=== PATIENT | male | born 1950 | race Caucasian/White ===

== ENCOUNTER 2019-05-21 09:32 | Inpatient (IN) | payer MEDICARE, SELFPAY ==
[2019-05-21 09:59] LABS: #Eosinphils 0.1 thou/uL (0.0-0.7); #Lymphocytes 1.8 thou/uL (1.20-3.40); %Basophils 0.1 % (0.0-1.0); %Eosinophils 0.3 % (0.0-10.0); %Lymphocytes 8.9 % (21.0-51.0); %Monocytes 5.2 % (0.0-10.0); %Neutrophils 85.5 % (42.0-75.0); Hemoglobin 11.6 g/dL (14.0-18.0); Mean Corpuscular HGB CONC 33.4 g/dL (32.0-36.0); Mean Corpuscular Hemoglobin 28.6 pg (27.0-31.0); Mean Corpuscular Volume 85.7 fL (78.0-98.0); Mean Platelet Volume 6.2 fL (7.4-10.4); Platelet Count 623 thou/uL (130-400); Red Blood Cell (RBC) Count 4.06 mill/uL (4.70-6.10); White Blood Cell (WBC) Count 19.9 thou/uL (4.8-10.8)
[2019-05-21 10:22] LABS: ALT (SGPT) 11 U/L (8-55); AST (SGOT) 12 U/L (5-34); Albumin 3.8 g/dL (3.4-4.8); Alkaline Phosphatase 78 U/L (40-110); Anion Gap 17 mmol/L (10-20); BUN (Urea Nitrogen) 20 mg/dL (8.4-25.7); Bilirubin, Total 0.4 mg/dL (0.2-1.2); Calc. Creatinine Clearance 0 mL/min (70-130); Calcium 9.4 mg/dL (7.8-10.44); Carbon Dioxide 23 mmol/L (23-31); Chloride 97 mmol/L (98-107); Estimated GFR-MDRD 62; Globulin 4.4 g/dL (2.4-3.5); Glucose 168 mg/dL (80-115); Potassium 4.7 mmol/L (3.5-5.1); Protein, Total 8.2 g/dL (5.8-8.1); Sodium 132 mmol/L (136-145)
--- NOTE | 2019-05-21 10:24 | RAD ---
XR Foot Lt 3 View STANDARD: 05/21/2019 10:06 AM CLINICAL INDICATION: Pain COMPARISON: None. FINDINGS: Fracture:No fracture. Arthropathy:There is moderate scattered osteoarthritis. Pes planus. Incidental findings:Prominent soft tissues of the forefoot. IMPRESSION: 1. No acute osseous abnormality. 2. Prominent distal soft tissues of left foot. Correlate with physical exam.
[2019-05-21 11:31] LABS: Bacteria/HPF None Seen HPF (None Seen); Bilirubin Negative (Negative); Blood, Urine 1+ (Negative); Clarity Clear (Clear); Glucose, Urine (Dipstick) Normal (Negative); Leukocyte Negative Leu/uL (Negative); Nitrite Negative (Negative); Protein, Urine (Dipstick) 100 mg/dL (Neg-Trace); RBC/HPF 0-3 HPF (0-3); Squamous Epithelial None Seen HPF (0-3); Urobilinogen Normal mg/dL (Less than 2); WBC/HPF 0-3 HPF (0-3)
--- NOTE | 2019-05-21 11:48 | RAD ---
Frontal view chest COMPARISON: 12/07/2014 Clinical indication: Emergency exam FINDINGS: There is enlargement of cardiac silhouette and prominence of pulmonary vasculature. No cons olidation or significant effusion. Chest is otherwise similar. IMPRESSION: Findings indicate mild CHF. Correlate clinically.
[2019-05-21] MEDS ORDERED: Cefepime 2 GM VIAL ONE (12:44)
[2019-05-21] MEDS ORDERED: Ondansetron PF 4 MG/2 ML Vial IVP PRN (12:48)
[2019-05-21] MEDS ORDERED: HYDROcodone/Acetaminophen 5/325 mg Tablet PO PRN (12:48)
[2019-05-21] MEDS ORDERED: Dextrose 5% in Water 1,000 ML IV PRN (12:55)
[2019-05-21] MEDS ORDERED: Dextrose 50% Abboject 50 ML SYRINGE SLOW IVP PRN (12:55)
[2019-05-21 13:41] LABS: Lactic Acid 2.6 mmol/L (0.5-2.2)
[2019-05-21] MEDS: Sodium Chloride 0.9% 1,000 ML IV SCH (15:41)
[2019-05-21] MEDS: Acetaminophen 325 MG TAB PO PRN (15:44)
[2019-05-21] MEDS ORDERED: FLU VACC TS2019-20(65YR UP)/PF 180 MCG/0.5 ML SYRINGE IM ONE (16:30)
[2019-05-21] MEDS ORDERED: Prevnar 13-Val Conj/PF 0.5 ML SYRINGE IM ONE (16:30)
--- NOTE | 2019-05-21 16:40 | HP ---
PRESENTING COMPLAINT: Nausea, vomiting, diarrhea from 5 days and left foot swelling and pain from today. HISTORY OF PRESENT ILLNESS: The patient with a past medical history of hypertension; diabetes mellitus, on oral hypoglycemic agents; hyperlipidemia, paroxysmal atrial fibrillation, presented with nausea, vomiting, and diarrhea, ongoing from last 5 days. As per the patient, from last 5 days, he has been having nausea and also had episode of vomiting and diarrhea. Denies any bleeding per rectum. Denies any abdominal pain. As per the patient, he did not take shower from last 1 week, and today he removed his socks and I noticed painful swelling of his left foot, which he did not notice 5 days ago, when the foot was normal. The patient denies any trauma. Denies any fever production, chest pain, shortness of breath. Had complaints of mild dizziness. In the emergency room, the patient noted to have a 2nd, 3rd and 4th toes blue discoloration with mild left foot swelling and redness. The patient is being admitted for cellulitis, gangrenous left 3 toes, and also the patient found to be AFib with RVR. Heart rate 106 per minute. The patient says he has paroxysmal atrial fibrillation. He says that he takes aspirin off and on. Denies any oral anticoagulation. SYSTEMIC REVIEW: As mentioned above. PAST MEDICAL HISTORY: As mentioned above. PAST SURGICAL HISTORY: 1. History of right big toe and 1st toe amputation. 2. History of tonsillectomy. 3. History of hernia repair. SOCIAL HISTORY: The patient denies smoking, alcohol abuse, or drug abuse. FAMILY HISTORY: Reviewed and noncontributory. ALLERGIES: TETRACYCLINE. HOME MEDICATIONS: 1. Metformin. 2. Glyburide. 3. Aspirin, off and on. PHYSICAL EXAMINATION: VITAL SIGNS: Blood pressure 114/66, pulse 110, respirations 18, and oxygen saturation 95%. GENERAL: The patient lying in bed comfortably, not in any distress. HEENT: Conjunctivae are normal. Oral mucosa mildly dry. NECK: Supple. No JVD. No lymphadenopathy. CHEST: Normal vesicular breathing. No rhonchi. No wheezing. HEART: Sounds irregularly regular. ABDOMEN: Soft, benign, and nontender. No visceromegaly. EXTREMITIES: Redness and swelling noted in the left distal foot area with blue discoloration noted on the 2nd, 3rd, and 4th toe. Amputation noted at the right big toe and 1st toe. No obvious redness or swelling noted in the right big toe area. LABORATORY DATA: CBC unremarkable except for a white blood cell of 19.9, hemoglobin 11.6, and platelet 623. CMP unremarkable except blood glucose 168, creatinine 1.18, sodium 132, and lactic acid 2.4. UA negative. EKG, AFib with RVR, heart rate 106 per minute. IMPRESSION: 1. Cellulitis with gangrenous left 2nd, 3rd, and 4th toes. ED physician being consulting Dr. Andrews, who did the previous amputation of right big toe and 1st toe. We will continue broad-spectrum antibiotics. We will get blood culture. We will get arterial study to rule out any peripheral vascular tissue component. As per patient, he last examined his foot was 6 days ago and he was wearing socks during this time. 2. Paroxysmal atrial fibrillation with rapid ventricular response. As per the patient, he takes aspirin at home. He denies any oral anticoagulation. However , the patient with a history of diabetes mellitus, hypertension, and atrial fibrillation. will get Cardiology evaluation if the patient needs to be evaluated for oral anticoagulation. 3. Diabetes mellitus. The patient takes oral hypoglycemic agents at home, and as per the patient, last blood glucose check was 2 weeks ago. We will continue sliding scale insulin. Continue monitoring blood sugar. 4. Hypertension. We will continue home blood pressure medication. 5. Hyperlipidemia. Continue statin. 6. Mild anemia. Continue to monitor hemoglobin and hematocrit. The patient currently denies any active bleeding. 7. Hyponatremia. 8. Deep vein thrombosis and gastrointestinal prophylaxis. Plan discussed with the patient and nursing staff. Job ID: [id number] MTDD
[2019-05-21] MEDS: Famotidine 20 MG TAB PO SCH (20:46)
[2019-05-21] MEDS: HumaLOG 300 UNITS/3 ML VIAL SC PRN (20:51)
[2019-05-21] MEDS ORDERED: Vancomycin HCl 1 GM in Premix Bag 1 BAG IVPB SCH (21:00)
--- NOTE | 2019-05-21 22:53 | CON ---
DATE OF CONSULTATION: CHIEF COMPLAINT: Left foot infection. HISTORY OF PRESENT ILLNESS: Mr. Pizarro is a 69-year-old male who has been admitted to the hospital today for left foot cellulitis and early gangrene. He reports that the last time he checked his foot was 5 to 6 days ago when he took a shower. He tried to take a shower today and when he removed the sock, he discovered a significant amount of erythema, drainage as well as discoloration of the toes. He came to the emergency department. He has been given vancomycin and cefepime. He reports that he has improved since arrival to the hospital with decreased erythema. The patient has poor sensation at baseline. He has not had pain with his foot. He has been febrile today as well. I have treated the patient in the past approximately four years ago. I performed a right toe amputation. This healed well. I have not seen him in several years. PAST MEDICAL HISTORY: Diabetes and hypertension. He has a history of cardiac arrhythmia as well including atrial fibrillation. PAST SURGICAL HISTORY: Right great and second toe amputation, previous hernia repair, previous tonsillectomy. PSYCHIATRIC HISTORY: Negative. SOCIAL HISTORY: The patient reports he drinks alcohol very rarely. No smoking or drug use. ALLERGIES: TETRACYCLINES. MEDICATIONS: The patient takes; 1. Lisinopril. 2. Metformin. 3. Glyburide. IMAGES: X-rays of the right foot demonstrate some evidence of destructive changes of the second toe distally. There is osteoarthritis of the first MCP joint and IP joint. No obvious osteomyelitis. PHYSICAL EXAMINATION: VITAL SIGNS: Blood pressure is 155/82, pulse is 102, respiratory rate 16, temperature is 100.0, and 98% on room air. GENERAL: He is alert, lying supine, in no apparent distress. HEENT: Normocephalic and atraumatic. RESPIRATORY: Breathing comfortably. ABDOMEN: Soft, nontender, and nondistended. MUSCULOSKELETAL: The patient's left foot has edema and erythema extending up to the ankle level. There is pitting edema of the foot. He has some bulla formation around the base of the toes as well as the plantar aspect of the forefoot. He has poor sensation in the foot. He is able to wiggle the toes. He has darkening of the second, third, and fourth toes with a cyanotic appearance. There is ruptured blistering over the second, third, and fourth toes. IMPRESSION: Diabetic 69-year-old male with a severe left foot infection and impending gangrene of the toes. PLAN: At this point, the patient will continue his broad-spectrum intravenous antibiotics. He has made some improvement he reports since arriving to the hospital. Hopefully, his cellulitis will continue to resolve and swelling will diminish. I think he will likely at least need second through fifth toe amputations. More likely, he will need a ray amputation. If his condition continues to worsen, he would need a below-knee amputation. We will see how he does overnight on antibiotics and reassess in the morning. He will be n.p.o. midnight in case he does need surgery tomorrow. If he is improving, we may give this a couple of days on antibiotics before surgical intervention. He will have diabetic management. Job ID: [id number]
[2019-05-21] MEDS: Vancomycin HCl 1.5 GM in Sodium Chloride 0.9% 250 ML 300 ML IVPB SCH (23:37)
[2019-05-22] MEDS: Cefepime 1 GM in Sodium Chloride 0.9% 100 ML IVPB SCH ×2 (02:40→13:23)
[2019-05-22] MEDS: Acetaminophen 325 MG TAB PO PRN ×2 (03:16→16:06)
[2019-05-22] MEDS: Sodium Chloride 0.9% 1,000 ML IV SCH ×2 (03:16→23:28)
[2019-05-22 05:36] LABS: #Eosinphils 0.1 thou/uL (0.0-0.7); #Neutrophils 11.3 thou/uL (1.40-6.50); %Basophils 0.1 % (0.0-1.0); %Eosinophils 0.6 % (0.0-10.0); %Lymphocytes 13.7 % (21.0-51.0); %Monocytes 7.2 % (0.0-10.0); %Neutrophils 78.4 % (42.0-75.0); Hemoglobin 9.4 g/dL (14.0-18.0); Mean Corpuscular Hemoglobin 27.5 pg (27.0-31.0); Mean Corpuscular Volume 85.9 fL (78.0-98.0); Mean Platelet Volume 6.3 fL (7.4-10.4); Platelet Count 533 thou/uL (130-400); White Blood Cell (WBC) Count 14.4 thou/uL (4.8-10.8)
[2019-05-22 05:50] LABS: Anion Gap 14 mmol/L (10-20); BUN (Urea Nitrogen) 15 mg/dL (8.4-25.7); Calc. Creatinine Clearance 105 mL/min (70-130); Calcium 8.8 mg/dL (7.8-10.44); Carbon Dioxide 21 mmol/L (23-31); Chloride 103 mmol/L (98-107); Estimated GFR-MDRD 85; Glucose 86 mg/dL (80-115); Potassium 4.4 mmol/L (3.5-5.1); Sodium 134 mmol/L (136-145)
[2019-05-22] MEDS: Famotidine 20 MG TAB PO SCH ×2 (09:20→21:09)
--- NOTE | 2019-05-22 10:36 | ULT ---
LEFT LOWER EXTREMITY ARTERIAL DOPPLER EXAM: HISTORY: Gangrene left toe. TECHNIQUE: Real-time color Doppler evaluation of the left lower extremity was performed. 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 No other areas of any definite sig nificant narrowing. POS: [facility]
[2019-05-22] MEDS: Vancomycin HCl 1.5 GM in Sodium Chloride 0.9% 250 ML 300 ML IVPB SCH ×2 (11:16→23:28)
[2019-05-22] MEDS: Enoxaparin Sodium 30 MG/0.3 ML SYRINGE SC SCH (11:55)
--- NOTE | 2019-05-22 16:42 | CON ---
DATE OF CONSULTATION: REASON FOR CONSULTATION: Atrial fibrillation. HISTORY OF PRESENT ILLNESS: Mr. Pizarro is a 69-year-old gentleman, who has not been seen or evaluated by Cardiology in the past. He recently presented with a foot infection. He states he has had atrial fibrillation in the past. No chest pain, pressure, shortness of breath, PE, palpitations, PND, orthopnea, or other associated symptoms noted. He has not been on anticoagulation therapy despite being diagnosed in the past. PAST MEDICAL HISTORY: Diabetes mellitus, hypertension, toe amputation on right, tonsillectomy, and hernia repair. SOCIAL HISTORY: No current tobacco or alcohol use. ALLERGIES: TETRACYCLINE. HOME MEDICATIONS: Include; 1. Metformin. 2. Glyburide. 3. Aspirin. REVIEW OF SYSTEMS: A 10-point review of systems is reviewed as above, otherwise negative. PHYSICAL EXAMINATION: GENERAL: Patient is a pleasant male, who is in no acute distress. The patient appears their stated age. VITAL SIGNS: Blood pressure 164/81, pulse 109, temperature 101.2. NEUROLOGIC: The patient is alert and oriented x3 with no focal neurologic deficits. HEENT: Sclerae without icterus. Mouth has moist mucous membranes with normal pallor. NECK: No JVD. Carotid upstroke brisk. No bruits bilaterally. LUNGS: Clear to auscultation with unlabored respirations. BACK: No scoliosis or kyphosis. CARDIAC: Irregularly irregular. ABDOMEN: Soft, nontender, nondistended. No peritoneal signs present. No hepatosplenomegaly. No abnormal striae. EXTREMITIES: 2+ femoral and 2+ dorsalis pedis pulses. No cyanosis, clubbing, or edema. SKIN: No gross abnormalities. PERTINENT LABORATORY DATA: Hemoglobin 9.4. Creatinine 0.89. IMPRESSION: 1. Paroxysmal atrial fibrillation. 2. Recent foot infection. 3. Diabetes mellitus. 4. Hypertension. RECOMMENDATIONS: Atrial fibrillation with RVR, likely secondary to recent infection. He appears fairly stable. I would recommend increasing . I do not feel the need to proceed with IV calcium channel blockade unless his heart rate increases further. We will increase metoprolol to 50 mg one p.o. q.a.m., 25 mg q.p.m. We will also give loading dose of digoxin IV. Echo with Doppler will also be reviewed. Job ID: [id number]
[2019-05-22] MEDS: Digoxin 0.5 MG/2 ML AMP SLOW IVP SCH ×2 (17:27→23:11)
--- NOTE | 2019-05-22 17:43 | CON ---
DATE OF CONSULTATION: 05/22/2019 CONSULTING PHYSICIAN: Dr. Hendricks. REASON FOR CONSULTATION: Left foot infection. HISTORY OF PRESENT ILLNESS: The patient is a 69-year-old white male. He is somewhat known to myself from a prior right great toe amputation for similar problems in July 2011. The patient was admitted to the hospital over the weekend when he noted drainage and discoloration associated with his left foot. The patient has had previous first and second toe amputations on his right foot, but has had no left foot amputations. He, of course, is diabetic and has diabetic neuropathy. He is unaware of any injury to his foot. When he was admitted, he had an elevated white blood cell count yesterday of 19.9. It has dropped down to 14.4 today. His hemoglobin, however, has also dropped from 11.6 down at 9.4. His electrolytes were unremarkable. Sugars are intermittently elevated. X-rays that were obtained at the time of admission showed no evidence of definite osteomyelitis within the left foot. He did have a lower extremity ultrasound performed today to look at the arterial flow and there is evidence of marked stenosis of the anterior tibial artery. PAST MEDICAL HISTORY: 1. Diabetes. 2. Hypertension. 3. Gastroesophageal reflux disease. 4. History of cardiac arrhythmia. PAST SURGICAL HISTORY: Left inguinal hernia repair in 1968, tonsillectomy in 1959, right great toe and second toe amputation in 2011 and 2014 respectively. MEDICATIONS: Medications in outpatient include lisinopril, metformin and glyburide. His primary care physician is Demetria Aparicio in [place]. ALLERGIES: NO KNOWN DRUG ALLERGIES. PERSONAL AND SOCIAL HISTORY: He is with 1 child. He lives in [place]. He does not smoke or drink alcohol. REVIEW OF SYSTEMS: Otherwise, unremarkable. FAMILY HISTORY: Noncontributory. PHYSICAL EXAMINATION: VITAL SIGNS: Temperature was 101.4 this morning. Pulse has been elevated between 96 and 119. Blood pressure is 160/86. GENERAL: This is a well-developed, well-nourished, alert and oriented white male, appearing stated age. HEAD, EYES, EARS, NOSE, AND THROAT: Unremarkable. NECK: Supple. LUNGS: Clear to auscultation anteriorly. CARDIAC: Regular rate and rhythm. ABDOMEN: Obese and protuberant, but soft and nontender. EXTREMITIES: He has easily palpable left femoral artery pulse. He has significant edema of the foot below the ankle. I am unable to definitively palpate any pedal pulses because of this edema. He has significant discoloration of the base of the third and fourth toe and extending somewhat onto the second, third, and fourth toes. There is loose skin and blistering both on the dorsal and plantar aspect. There is no foul smell. There is no penetrating ulcer that I can definitely discern. I removed all loose and devitalized skin. I placed gauze dressings between his toes. ASSESSMENT: The patient with obvious infection involving at least the second, third, and fourth toes of the left foot. He believes that it is improved since he has been hospitalized and he is receiving cefepime and vancomycin. For now, I would continue IV antibiotics, wound care. Since he has no exposed bone or definite penetrating ulcers or evidence of wet gangrene (with any foul smell) I would recommend observation from a surgical standpoint. I will continue to follow him and if it continues getting better, he may not need surgery. If any of these problems develop or progresses, then he would require surgery. If the surgery is performed at this time, it would likely be an amputation of the second through fifth toes. Job ID: [id number]
--- NOTE | 2019-05-22 19:07 | PDOC.HOSPP ---
- Subjective Encounter Date: 05/22/19 Encounter Time: 09:45 Subjective: pt up in bed eating no complains - Objective Vital Signs & Weight: Vital Signs (12 hours) Temp Pulse Resp BP Pulse Ox 05/22/19 17:27 109 H 05/22/19 16:00 101.2 F H 109 H 20 164/81 H 97 05/22/19 11:15 97.7 F 113 H 20 160/86 H 98 05/22/19 07:30 98 05/22/19 07:25 98.8 F 113 H 16 140/84 96 Weight Admit Weight 208 lb 9 oz Weight 206 lb 3.2 oz I&O: 05/21/19 05/22/19 05/23/19 06:59 06:59 06:59 Intake Total 3117 Output Total 3625 Balance -508 Result Diagrams: 05/22/19 05:27 05/22/19 05:27 Additional Labs: Accuchecks 05/22/19 05/22/19 05/22/19 16:28 12:16 11:14 POC Glucose 173 H 128 H 61 L 05/22/19 05/21/19 05:48 20:20 POC Glucose 80 301 H Hospitalist ROS - Review of Systems Cardiovascular: denies: chest pain, palpitations, orthopnea, paroxysmal noc. dyspnea, edema, light headedness, other Gastrointestinal: denies: nausea, vomiting, abdominal pain, diarrhea, constipation, melena, hematochezia, other Genitourinary: denies: dysuria, frequency, incontinence, hematuria, retention, other - Medication Medications: Active Medications Generic Name Dose Route Start Last Admin Trade Name Vladimirq PRN Reason Stop Dose Admin Acetaminophen 650 mg 05/21/19 12:48 05/22/19 16:06 Tylenol PO 650 mg Q4H PRN Administration Headache/Fever/Mild Pain (1-3) Dextrose/Water 25 gm 05/21/19 12:55 05/22/19 11:31 Dextrose 50% SLOW IVP 25 gm PRN PRN Administration Hypoglycemia Digoxin 0.25 mg 05/22/19 16:30 05/22/19 17:27 Lanoxin SLOW IVP 05/23/19 10:31 0.25 mg Q6H RICHARD Administration Enoxaparin Sodium 30 mg 05/22/19 09:00 05/22/19 11:55 Lovenox SC 30 mg 0900 RICHARD Administration Famotidine 20 mg 05/21/19 21:00 05/22/19 09:20 Pepcid PO 20 mg BID RICHARD Administration Sodium Chloride 1,000 mls @ 75 mls/hr 05/21/19 13:00 05/22/19 03:16 Normal Saline 0.9% IV 1,000 mls .[id number] RICHARD Administration Cefepime HCl 1 gm/ Sodium 100 mls @ 200 mls/hr 05/22/19 01:00 05/22/19 13:23 Chloride IVPB 100 mls 0100,1300 RICHARD Administration Vancomycin HCl 1.5 gm/ Sodium 300 mls @ 200 mls/hr 05/21/19 23:00 05/22/19 11 :16 Chloride IVPB 300 mls 1100,2300 RICHARD Administration Insulin Human Lispro 0 units 05/21/19 12:55 05/21/19 20:51 Humalog SC 4 unit/kg .BEDTIME SLIDING SC PRN Administration Bedtime Correctional Scale - Exam Heart: negative: RRR, no murmur, no gallops, no rubs, normal peripheral pulses, irregular, diminshed peripheral pulses, murmur present, II/IV, III/IV Respiratory: negative: CTAB, no wheezes, no rales, no ronchi, normal chest expansion, no tachypnea, normal percussion, rales, rhonchi, tachypneic, wheezes Gastrointestinal: negative: soft, non-tender, non-distended, normal bowel sounds , no palpable masses, no hepatomegaly, no splenomegaly, no bruit, no guarding, no rigidity, tender to palpation, distended, diminished bowl sounds, voluntary guarding Hosp A/P (1) Sepsis Code(s): A41.9 - SEPSIS, UNSPECIFIED ORGANISM Status: Acute (2) Diabetes Code(s): E11.9 - TYPE 2 DIABETES MELLITUS WITHOUT COMPLICATIONS Status: Acute (3) Diabetic toe ulcer Code(s): E11.621 - TYPE 2 DIABETES MELLITUS WITH FOOT ULCER; L97.509 - NON- PRESSURE CHRONIC ULCER OTH PRT UNSP FOOT W UNSP SEVERITY Status: Acute (4) Afib Code(s): I48.91 - UNSPECIFIED ATRIAL FIBRILLATION Status: Acute - Plan pt continues to have a fever while on abx, surgery consulted. He does have stenosis to left tibial artery, will get cv surgery to see him this could prevent good penetration of abx. pt on bb and cardio has been consulted for his afib. His blood sugars were low will monitor on sliding scale.
[2019-05-22 22:51] LABS: Vancomycin, Trough 14.1 ug/mL
[2019-05-23] MEDS: Cefepime 1 GM in Sodium Chloride 0.9% 100 ML IVPB SCH ×2 (03:12→14:50)
[2019-05-23] MEDS: Digoxin 0.5 MG/2 ML AMP SLOW IVP SCH ×2 (05:40→10:55)
[2019-05-23 05:46] LABS: #Eosinphils 0.1 thou/uL (0.0-0.7); #Lymphocytes 1.8 thou/uL (1.20-3.40); #Neutrophils 9.3 thou/uL (1.40-6.50); %Basophils 0.4 % (0.0-1.0); %Eosinophils 0.8 % (0.0-10.0); %Lymphocytes 14.8 % (21.0-51.0); %Monocytes 7.9 % (0.0-10.0); %Neutrophils 76.1 % (42.0-75.0); Mean Corpuscular HGB CONC 34.4 g/dL (32.0-36.0); Mean Corpuscular Hemoglobin 29.7 pg (27.0-31.0); Mean Corpuscular Volume 86.2 fL (78.0-98.0); Mean Platelet Volume 6.4 fL (7.4-10.4); Platelet Count 523 thou/uL (130-400); RBC Distribution Width 11.7 % (11.5-14.5); Red Blood Cell (RBC) Count 3.04 mill/uL (4.70-6.10); White Blood Cell (WBC) Count 12.2 thou/uL (4.8-10.8)
[2019-05-23 05:50] LABS: Hemoglobin A1c 9.9 % (4.0-6.0)
--- NOTE | 2019-05-23 09:26 | PRG ---
DATE OF SERVICE: 05/23/2019 SUBJECTIVE: Mr. Pizarro is seen one day after the initial consultation. Yesterday, I debrided loose nonviable skin off the blistered areas of his second, third, and fourth toes on the left foot. Today there, they have a beefy-red look to it. There may be a little ischemic change of the distal toes. There is still no foul smell or obvious abscess or draining ulcer. He has no complaints. PHYSICAL EXAMINATION: He was febrile last night, temperature of 101.2, currently his temperature is 99.1, pulse is 100, blood pressure is stable. Examination of his foot is as described above. LABORATORY DATA: His white blood cell count is down to 12.2, hemoglobin is a little bit lower at 9.0. Hemoglobin A1c is elevated at 9.9. Electrolytes were not checked. ASSESSMENT: The patient with a very concerning appearing left foot. I think there is still an excellent chance to require some degree of toe or foot amputation. For now, there is nothing pushing me toward an operation and since his white blood cell count is decreasing. I recommend continued observation on IV antibiotics for the time being. I will check his foot again tomorrow. He was examined with the Wound Care Team, and I will tell to coordinate with him for wound care tomorrow as well. Job ID: [id number]
[2019-05-23] MEDS: Enoxaparin Sodium 30 MG/0.3 ML SYRINGE SC SCH (09:27)
[2019-05-23] MEDS: Famotidine 20 MG TAB PO SCH ×2 (09:28→19:17)
[2019-05-23] MEDS: Vancomycin HCl 1.5 GM in Sodium Chloride 0.9% 250 ML 300 ML IVPB SCH ×2 (10:47→23:07)
[2019-05-23] MEDS: Sodium Chloride 0.9% 1,000 ML IV SCH (11:17)
[2019-05-23] MEDS ORDERED: Lidocaine 1% (PF) 30 ML VIAL ONE (13:16)
[2019-05-23] MEDS ORDERED: Iopamidol 370 76% 50 ML VIAL FS ONE (15:03)
--- NOTE | 2019-05-23 15:14 | OP ---
DATE OF PROCEDURE: 05/23/2019 PROCEDURES PERFORMED: Aortogram, iliofemoral runoff, bilateral lower extremity runoff. ANESTHESIA: 1% lidocaine. CONTRAST: 32. FLUORO: 4.7 minutes. DESCRIPTION OF PROCEDURE: After prepping and draping the right groin, lidocaine was used to infiltrate the skin and subcutaneous tissue and the femoral artery was punctured under ultrasound guidance on first pass. The wire was inserted using 5-[place] dilator and sheath. Contra catheter was then placed in the aorta and aortogram and iliofemoral runoff obtained. With the assistance of an angled Glidewire and angled [place] catheter, the catheter was advanced down into the left superficial femoral artery where runoff of the leg was obtained. Catheter was then removed and runoff of the right leg obtained through the sheath. Findings; no aortoiliac disease. Common femoral was widely patent. Deep femoral systems widely patent. Left superficial femoral artery was with minimal disease throughout its entire length and then complete occlusion of the anterior tibial, which reconstitution distally and a small diffusely diseased vessel that reconstitutes again at the level of the ankle, where it does not enter to the forefoot. Tibioperoneal trunk visualizes at its distal most part through collaterals and then diseased posterior tibial visualize this down to the level of the ankle and slightly into the foot. On the right leg, the superficial femoral artery has about a 50% stenosis distally and then the anterior tibial was subtotally occluded giving rise to a long segment of a very thin diseased vessel prior to reconstituting. The posterior tibial was occluded at its origin and also reconstitutes distally. Job ID: [id number]
--- NOTE | 2019-05-23 15:28 | PDOC.HOSPP ---
- Subjective Encounter Date: 05/23/19 Encounter Time: 10:30 Subjective: pt up in bed no complains - Objective Vital Signs & Weight: Vital Signs (12 hours) Temp Pulse Resp BP BP Pulse Ox 05/23/19 11:57 99.6 F 101 H 16 157/72 H 96 05/23/19 10:55 105 H 05/23/19 07:45 99 05/23/19 07:43 99.1 F 100 16 162/81 H 99 05/23/19 05:40 99 05/23/19 04:00 99.9 F H 99 22 H 128/60 94 L Weight Admit Weight 208 lb 9 oz Weight 207 lb 9.6 oz I&O: 05/22/19 05/23/19 05/24/19 06:59 06:59 06:59 Intake Total 3117 6846 Output Total 362 3100 Balance -500 5230 Result Diagrams: 05/23/19 05:16 05/22/19 05:27 Additional Labs: Accuchecks 05/23/19 05/23/19 05/22/19 10:46 05:29 20:23 POC Glucose 239 H 117 H 130 H 05/22/19 16:28 POC Glucose 173 H Hospitalist ROS - Review of Systems Respiratory: denies: cough, dry, shortness of breath, hemoptysis, SOB with excertion, pleuritic pain, sputum, wheezing, other Cardiovascular: denies: chest pain, palpitations, orthopnea, paroxysmal noc. dyspnea, edema, light headedness, other Gastrointestinal: denies: nausea, vomiting, abdominal pain, diarrhea, constipation, melena, hematochezia, other - Medication Medications: Active Medications Generic Name Dose Route Start Last Admin Trade Name Freq PRN Reason Stop Dose Admin Acetaminophen 650 mg 05/21/19 12:48 05/22/19 16:06 Tylenol PO 650 mg Q4H PRN Administration Headache/Fever/Mild Pain (1-3) Dextrose/Water 25 gm 05/21/19 12:55 05/22/19 11:31 Dextrose 50% SLOW IVP 25 gm PRN PRN Administration Hypoglycemia Enoxaparin Sodium 30 mg 05/22/19 09:00 05/23/19 09:27 Lovenox SC 30 mg 0900 RICHARD Administration Famotidine 20 mg 05/21/19 21:00 05/23/19 09:28 Pepcid PO 20 mg BID RICHARD Administration Cefepime HCl 1 gm/ Sodium 100 mls @ 200 mls/hr 05/22/19 01:00 05/23/19 14:50 Chloride IVPB 100 mls 0100,1300 RICHARD Administration Vancomycin HCl 1.5 gm/ Sodium 300 mls @ 200 mls/hr 05/21/19 23:00 05/23/19 10 :47 Chloride IVPB 300 mls 1100,2300 RICHARD Administration Insulin Human Lispro 0 units 05/21/19 12:55 05/21/19 20:51 Humalog SC 4 unit/kg .BEDTIME SLIDING SC PRN Administration Bedtime Correctional Scale Metoprolol Succinate 50 mg 05/23/19 09:00 05/23/19 09:28 Toprol Xl PO 50 mg DAILY RICHARD Administration Metoprolol Succinate 25 mg 05/22/19 21:00 05/22/19 21:09 Toprol Xl PO 25 mg QPM RICHADR Administration - Exam Neck: negative: supple, symmetric, no JVD, no thyromegaly, no lymphadenopathy, no carotid bruit, JVD Heart: negative: RRR, no murmur, no gallops, no rubs, normal peripheral pulses, irregular, diminshed peripheral pulses, murmur present, II/IV, III/IV Respiratory: negative: CTAB, no wheezes, no rales, no ronchi, normal chest expansion, no tachypnea, normal percussion, rales, rhonchi, tachypneic, wheezes Extremities - other findings: left foot is wrapped, has mild erythema to ankle area Hosp A/P (1) Sepsis Code(s): A41.9 - SEPSIS, UNSPECIFIED ORGANISM Status: Acute (2) Diabetes Code(s): E11.9 - TYPE 2 DIABETES MELLITUS WITHOUT COMPLICATIONS Status: Acute (3) Diabetic toe ulcer Code(s): E11.621 - TYPE 2 DIABETES MELLITUS WITH FOOT ULCER; L97.509 - NON- PRESSURE CHRONIC ULCER OTH PRT UNSP FOOT W UNSP SEVERITY Status: Acute (4) Afib Code(s): I48.91 - UNSPECIFIED ATRIAL FIBRILLATION Status: Acute (5) PVD (peripheral vascular disease) Code(s): I73.9 - PERIPHERAL VASCULAR DISEASE, UNSPECIFIED Status: Acute - Plan pt continues to have a fever while on abx, surgery consulted. He does have stenosis to left tibial artery, will get cv surgery to see him this could prevent good penetration of abx. pt on bb and cardio has been consulted for his afib. His blood sugars were low will monitor on sliding scale. 05/23 CV surgery consulted, his hr has been stable. Id consulted may need nursing home abx if no surgery. will hold metformin due to possible contrast nephropathy. will continue glyburide but with a lower dose and he is on sliding scale.
[2019-05-23] MEDS: glyBURIDE 5 MG TAB PO SCH (16:55)
--- NOTE | 2019-05-23 18:12 | CON ---
DATE OF CONSULTATION: HISTORY OF PRESENT ILLNESS: This is a 69-year-old gentleman admitted with severe left foot infection and has been seen in consultation by Orthopedics, General Surgery, and Cardiology. His foot problem was evaluated with ultrasonography suggesting an anterior tibial artery stenosis on the left leg. The patient had a pervious partial amputation of the right foot including the great toe in the past and that was able to heal. The patient's cardiovascular risk factors include diabetes mellitus, poorly controlled with an A1c of 9.9. He is a nonsmoker, nondrinker, and , although his is not presently here. Dr. Ferguson has evaluated the foot and feels that there is no pressing need for surgical intervention at this time. HOME MEDICATIONS: 1. Metformin. 2. Glyburide. LABORATORY VALUES: White count is elevated, creatinine is normal. The patient's EKG shows atrial fibrillation. PHYSICAL EXAMINATION: EXTREMITIES: Examination of the lower extremities reveals palpable femoral pulses bilaterally as well as popliteal pulses. I am unable to palpate pedal pulses. He has a good Doppler signal in both right and left posterior tibial vessels and good Doppler signal in his left peroneal. Anterior tibial Doppler signal is depressed on the left. On examination, the patient has a swollen erythematous foot extending up into the ankle with the three middle toes, all being purple in color and this extending down toward the metatarsal heads. There is no obvious skin break with crusty areas all over the plantar surface of his foot. PLAN: At this time, I will proceed with angiography, although suspected primarily he has diabetic small vessel disease and if possible, we can try and recanalize these. I am concerned that he may have a deep space infection in his foot, which may lead to a [id number] amputation. Job ID: [id number]
[2019-05-23] MEDS ORDERED: Metoprolol Tartrate 25 MG TAB PO SCH (21:00)
[2019-05-23] MEDS ORDERED: glyBURIDE 5 MG TAB PO SCH (21:00)
[2019-05-24] MEDS: Cefepime 1 GM in Sodium Chloride 0.9% 100 ML IVPB SCH ×2 (02:31→13:23)
[2019-05-24] MEDS: glyBURIDE 5 MG TAB PO SCH ×2 (07:12→17:10)
[2019-05-24] MEDS: Famotidine 20 MG TAB PO SCH ×2 (08:48→21:03)
[2019-05-24] MEDS: Lisinopril 20 MG TAB PO SCH (08:48)
[2019-05-24] MEDS: Enoxaparin Sodium 30 MG/0.3 ML SYRINGE SC SCH (08:48)
--- NOTE | 2019-05-24 09:02 | PRG ---
DATE OF SERVICE: 05/24/2019 SUBJECTIVE: Mr. Pizarro is doing well from a CV standpoint. His rate is controlled. I have increased his beta david therapy yesterday and added a p.m. dose. The patient did undergo aortogram with iliofemoral runoff bilaterally. The left SFA and common femoral artery have no significant disease. There was complete occlusion of the anterior tibial artery. The tibioperoneal trunk was also occluded in addition to the posterior tibial artery. OBJECTIVE: VITAL SIGNS: Blood pressure 137/67, pulse 88, temperature 98.7. LUNGS: Clear to auscultation. HEART: Irregular regular. ABDOMEN: Soft, nontender, nondistended. EXTREMITIES: No edema. IMPRESSION: 1. Paroxysmal atrial fibrillation. 2. Severe peripheral vascular disease. 3. Nonhealing ulcer. 4. Diabetes mellitus. RECOMMENDATIONS: 1. Continue beta-david therapy 50 mg q.a.m. and 25 mg q.p.m. 2. Once he is close to discharge, we will discontinue Lovenox and add Eliquis 5 mg p.o. b.i.d. 3. Continue wound care and further recommendations per CV Surgery and Orthopedics. Otherwise, from my standpoint, I have no further recommendations. Plan is to follow Mr. Pizarro as an outpatient unless other changes occur during this hospitalization. Job ID: [id number]
[2019-05-24 09:18] LABS: #Eosinphils 0.1 thou/uL (0.0-0.7); #Lymphocytes 1.5 thou/uL (1.20-3.40); #Monocytes 0.8 thou/uL (0.11-0.59); #Neutrophils 8.2 thou/uL (1.40-6.50); %Basophils 0.2 % (0.0-1.0); %Eosinophils 0.9 % (0.0-10.0); %Lymphocytes 13.9 % (21.0-51.0); %Monocytes 7.6 % (0.0-10.0); %Neutrophils 77.5 % (42.0-75.0); Hemoglobin 9.4 g/dL (14.0-18.0); Mean Corpuscular Hemoglobin 28.8 pg (27.0-31.0); Mean Corpuscular Volume 84.6 fL (78.0-98.0); Mean Platelet Volume 6.3 fL (7.4-10.4); Platelet Count 501 thou/uL (130-400); RBC Distribution Width 11.9 % (11.5-14.5); Red Blood Cell (RBC) Count 3.26 mill/uL (4.70-6.10); White Blood Cell (WBC) Count 10.6 thou/uL (4.8-10.8)
[2019-05-24] MEDS ORDERED: Vancomycin HCl 1.5 GM in Sodium Chloride 0.9% 250 ML 300 ML IVPB SCH (11:00)
[2019-05-24] MEDS: HumaLOG 300 UNITS/3 ML VIAL SC PRN ×2 (11:16→17:15)
--- NOTE | 2019-05-24 15:24 | PQF ---
ERICAGEORGIANA KARISHMA [id number] [facility] [id number] CLINICAL DOCUMENTATION IMPROVEMENT CLARIFICATION FORM: ICD-10 Updated PLEASE DO AN ADDENDUM TO THE PROGRESS NOTE WITH ANY DOCUMENTATION UPDATES OR ADDITIONS AND CARRY THROUGH TO DC SUMMARY. THANK YOU. DATE: 05/24/19 ATTN: Dr. Martinez Please exercise your independent, professional judgment in responding to the clarification form. Clinical indicators are provided on the bottom of this form for your review Diagnosis: ___Sepsis Present on Admission (POA): [ x ] Yes [ ] No [ ] Unable to determine For continuity of documentation, please document condition throughout progress notes and discharge summary. Thank You. CLINICAL INDICATORS - SIGNS / SYMPTOMS / LABS/ RSULTS AND LOCATION IN MR 05/22 VS: T 101.2; HR 113 per VS 05/21 wbc 19.9 per lab 05/21 VS: HR 112 05/22 (Juan): "Sepsis" RISK FACTORS / RSULTS AND LOCATION IN MR 05/21 Andrews: "diabetic male with severe left foot infection and impending gangrene of the toes" 05/22 Steinceline: "Obvious infection involving at least the second, third and fourth toes of the left foot" TREATMENT / RSULTS AND LOCATION IN MR IV antibotics: 05/21 to date: cefepime 1gm IV BID and vancomcyin 1.5gm IV BID per orders IV fluids: 05/21 to date: NS at 75 per orders 05/23 consult to ID per orders 05/21 orders for wound care 05/22 Surgery consult per orders (This form is maintained as a part of the permanent medical record) 2014 [employer]. All Rights Reserved Gavi Alcantar RN, BSN, CCDS [email or web address] [phone] MTDD
--- NOTE | 2019-05-24 16:44 | CON ---
DATE OF CONSULTATION: 05/24/2019 REASON FOR CONSULTATION: Inflammatory changes with gangrene, left foot. HISTORY OF PRESENT ILLNESS: A 69-year-old, who has a history of coronary artery disease, atrial fibrillation, type 2 diabetes, hypertension, and peripheral vascular disease with prior amputation of the right great toe, who developed swelling and inflammatory changes of the left foot with bluish discoloration of the 3rd and 4th toes. His initial vital signs demonstrated pulse 124, BP 160/80, respiratory rate 20, temperature 98.1, O2 saturation 98, and the exam shows remarkable for the changes in the left foot with erythema, blistering in the dorsal aspect and gangrenous changes of 3rd and 4th toes. Dr. Knight did an angiogram and most of the disease is below the trifurcation and is not amenable to revascularization. The patient has been readied for I believe amputation of the involved toes. Otherwise, he denies headaches, visual symptoms, sore throat, odynophagia, or dysphagia. No cough, sputum production, chest pain, abdominal pain, diarrhea, or genitourinary symptoms. PAST MEDICAL HISTORY: Includes atrial fibrillation, coronary artery disease, type 2 diabetes, peripheral vascular disease, prior amputation of the right first toe, hypertension, hernia repair, and tonsillectomy. SOCIAL HISTORY: Never smoker. Drinks occasionally. Retired. ALLERGIES: TETRACYCLINE. MEDICATIONS: Had been on; 1. Metformin. 2. Lisinopril. 3. Glyburide. FAMILY HISTORY: Noncontributory. CURRENT MEDICATIONS: Include; 1. Cefepime 1 g q.12 hours. 2. Enoxaparin. 3. Glyburide. 4. Insulin. 5. Lisinopril. 6. Metoprolol. 7. Ondansetron. 8. Vancomycin. PHYSICAL EXAMINATION: VITAL SIGNS: T-max 101.4. He has been afebrile since. SKIN: Shows the areas of acrocyanosis and pretty much lack of blood supply to the 3rd and 4th toes. There is blistering, erythema, and dusky red discoloration of the dorsal aspect of the left foot, mostly located at the forefoot region. The patient has a peripheral IV access and is voiding in the toilet. No lymphadenopathy. HEENT: Ocular movements conjugate. Oral cavity with no remarkable findings. NECK: Supple. No jugular venous distention. LUNGS: Symmetric, clear breath sounds. HEART: S1 and S2, regular rate with no murmurs. ABDOMEN: Soft. Not distended or tender. No ascites. No bladder distention. NEUROLOGIC: Cognitive function appears to be intact. I could not feel dorsalis pedis pulses. LABORATORY DATA: White cell count was 19.9, down to 10.6; hemoglobin 9.4; platelets 501. Sodium 134, creatinine 0.89, with normal liver profile, albumin 3.8. Urinalysis was normal essentially. Vancomycin trough 14.1. Cultures from the foot, this is a swab culture from the surface of an ulcer with Enterobacter cloacae complex and Staph lugdunensis with fairly broad susceptibility profile. ASSESSMENT AND PLAN: Peripheral vascular disease with gangrene of at least for now the 3rd and 4th toes, but the remainder of the foot is at risk. He does have disease that is below the trifurcation and not amenable to revascularization. We will discontinue vancomycin, add Flagyl, continue cefepime, and see what results of amputation. Consider hyperbaric referral. No evidence of bacteremia at this time. The sequence of events may have included an embolic phenomena from the more proximal areas. At risk for higher level of amputation. Job ID: [id number] [facility]
--- NOTE | 2019-05-24 16:53 | PDOC.HOSPP ---
- Subjective Encounter Date: 05/24/19 Encounter Time: 11:15 Subjective: pt up in bed no complains - Objective Vital Signs & Weight: Vital Signs (12 hours) Temp Pulse Resp BP BP BP Pulse Ox 05/24/19 11:19 99.1 F 89 18 153/73 H 97 05/24/19 08:48 143/83 H 05/24/19 07:15 98.7 F 88 16 137/67 97 05/24/19 07:00 97 Weight Admit Weight 208 lb 9 oz Weight 208 lb I&O: 05/23/19 05/24/19 05/25/19 06:59 06:59 06:59 Intake Total 6846 4700 Output Total 3100 3850 Balance 3746 850 Result Diagrams: 05/24/19 08:53 05/22/19 05:27 Additional Labs: Accuchecks 05/24/19 05/24/19 05/23/19 11:17 05:24 20:13 POC Glucose 250 H 226 H 238 H 05/23/19 16:45 POC Glucose 252 H Hospitalist ROS - Review of Systems Cardiovascular: denies: chest pain, palpitations, orthopnea, paroxysmal noc. dyspnea, edema, light headedness, other Gastrointestinal: denies: nausea, vomiting, abdominal pain, diarrhea, constipation, melena, hematochezia, other Genitourinary: denies: dysuria, frequency, incontinence, hematuria, retention, other - Medication Medications: Active Medications Generic Name Dose Route Start Last Admin Trade Name Freq PRN Reason Stop Dose Admin Acetaminophen 650 mg 05/21/19 12:48 05/22/19 16:06 Tylenol PO 650 mg Q4H PRN Administration Headache/Fever/Mild Pain (1-3) Dextrose/Water 25 gm 05/21/19 12:55 05/22/19 11:31 Dextrose 50% SLOW IVP 25 gm PRN PRN Administration Hypoglycemia Enoxaparin Sodium 30 mg 05/22/19 09:00 05/24/19 08:48 Lovenox SC 30 mg 0900 RICHARD Administration Famotidine 20 mg 05/21/19 21:00 05/24/19 08:48 Pepcid PO 20 mg BID RICHARD Administration Glyburide 2.5 mg 05/23/19 17:00 05/24/19 07:12 Diabeta PO 2.5 mg 0730,1700 RICHARD Administration Insulin Human Lispro 0 units 05/21/19 12:55 05/24/19 11:16 Humalog SC 3 unit .MILD SLIDING SCALE PRN Administration Mild Correctional Scale Insulin Human Lispro 0 units 05/21/19 12:55 05/21/19 20:51 Humalog SC 4 unit/kg .BEDTIME SLIDING SC PRN Administration Bedtime Correctional Scale Lisinopril 20 mg 05/24/19 09:00 05/24/19 08:48 Zestril PO 20 mg DAILY RICHARD Administration Metoprolol Succinate 50 mg 05/23/19 09:00 05/24/19 08:50 Toprol Xl PO 50 mg DAILY RICHARD Administration Metoprolol Succinate 25 mg 05/22/19 21:00 05/23/19 19:19 Toprol Xl PO 25 mg QPM RICHARD Administration - Exam Neck: negative: supple, symmetric, no JVD, no thyromegaly, no lymphadenopathy, no carotid bruit, JVD Heart: negative: RRR, no murmur, no gallops, no rubs, normal peripheral pulses, irregular, diminshed peripheral pulses, murmur present, II/IV, III/IV Respiratory: negative: CTAB, no wheezes, no rales, no ronchi, normal chest expansion, no tachypnea, normal percussion, rales, rhonchi, tachypneic, wheezes Hosp A/P (1) Sepsis Code(s): A41.9 - SEPSIS, UNSPECIFIED ORGANISM Status: Acute (2) Diabetes Code(s): E11.9 - TYPE 2 DIABETES MELLITUS WITHOUT COMPLICATIONS Status: Acute (3) Diabetic toe ulcer Code(s): E11.621 - TYPE 2 DIABETES MELLITUS WITH FOOT ULCER; L97.509 - NON- PRESSURE CHRONIC ULCER OTH PRT UNSP FOOT W UNSP SEVERITY Status: Acute (4) Afib Code(s): I48.91 - UNSPECIFIED ATRIAL FIBRILLATION Status: Acute (5) PVD (peripheral vascular disease) Code(s): I73.9 - PERIPHERAL VASCULAR DISEASE, UNSPECIFIED Status: Acute - Plan pt continues to have a fever while on abx, surgery consulted. He does have stenosis to left tibial artery, will get cv surgery to see him this could prevent good penetration of abx. pt on bb and cardio has been consulted for his afib. His blood sugars were low will monitor on sliding scale. 05/23 CV surgery consulted, his hr has been stable. Id consulted may need engine lathe tender abx if no surgery. will hold metformin due to possible contrast nephropathy. will continue glyburide but with a lower dose and he is on sliding scale. 05/24 will continue abx, he will need amputation due to decreased flow to his left foot. will hold metformin and start lantus. will also start him on lovonox and then he will need eliquis on discharge.
[2019-05-24] MEDS: Acetaminophen 325 MG TAB PO PRN (17:11)
[2019-05-24] MEDS ORDERED: Enoxaparin Sodium 80 MG/0.8 ML SYRINGE SC SCH (21:00)
[2019-05-24] MEDS ORDERED: Enoxaparin Sodium 100 MG/ML SYRINGE SC SCH (21:00)
[2019-05-24] MEDS: metroNIDAZOLE 500 MG TAB PO SCH (21:03)
[2019-05-24 22:35] LABS: Vancomycin, Trough 17.9 ug/mL
[2019-05-24] MEDS ORDERED: Vancomycin 1.5 GRAM/300 ML BAG 1.5 GM in Premix Bag 1 BAG IVPB SCH (23:00)
[2019-05-25] MEDS: Cefepime 2 GM in Sodium Chloride 0.9% 100 ML IVPB SCH ×2 (00:25→13:52)
[2019-05-25] MEDS: Enoxaparin Sodium 40 MG/0.4 ML SYRINGE SC SCH (07:37)
[2019-05-25] MEDS: glyBURIDE 5 MG TAB PO SCH ×2 (07:37→18:39)
[2019-05-25] MEDS: Insulin Glargine 5 UNITS in Pre-Filled Syringe 1 EACH SC SCH (07:38)
[2019-05-25] MEDS: Famotidine 20 MG TAB PO SCH ×2 (08:13→21:48)
[2019-05-25] MEDS: metroNIDAZOLE 500 MG TAB PO SCH ×3 (08:14→21:49)
[2019-05-25] MEDS ORDERED: Insulin Regular 300 UNITS/3 ML VIAL ONE (09:30)
[2019-05-25] MEDS ORDERED: Fentanyl 100 MCG/2 ML VIAL ONE ×2 (09:48→10:26)
[2019-05-25] MEDS ORDERED: Ketorolac Tromethamine 30 MG/ML VIAL ONE (10:02)
[2019-05-25] MEDS ORDERED: Ropivacaine 0.5% HCl/PF (150 MG/30 ML VIAL) ONE (10:02)
[2019-05-25] MEDS ORDERED: Lidocaine 1% PF 5 ML VIAL ONE (10:02)
[2019-05-25] MEDS ORDERED: PROPOFOL 200 MG/20 ML VIAL ONE (10:02)
[2019-05-25] MEDS ORDERED: ePHEDrine/0.9% NaCl/PF SYRINGE 50 mg/10 ml ONE (10:02)
[2019-05-25] MEDS ORDERED: PHENYLEPHRINE-NS 100 MCG/ML 10 ML SYRINGE ONE ×2 (10:02)
[2019-05-25] MEDS ORDERED: Ondansetron PF 4 MG/2 ML Vial ONE (10:02)
[2019-05-25] MEDS ORDERED: Promethazine HCl 25 MG/ML VIAL IM PRN (11:13)
[2019-05-25] MEDS ORDERED: Ondansetron HCl/PF 4 MG/2 ML Vial IVP PRN (11:13)
[2019-05-25] MEDS ORDERED: Promethazine HCl 25 MG/ML VIAL SLOW IVP PRN (11:13)
--- NOTE | 2019-05-25 11:48 | PDOC.HOSPP ---
- Subjective Encounter Date: 05/25/19 Encounter Time: 07:15 Subjective: Patient seen and examined. No new complaints. No overnight events, s/p surgery today, family bedside - Objective Vital Signs & Weight: Vital Signs (12 hours) Temp Pulse Resp BP Pulse Ox 05/25/19 07:32 99.3 F 86 18 93 L 05/25/19 07:30 95 05/25/19 04:00 99.0 F 82 16 125/58 L 94 L 05/25/19 00:00 20 Weight Admit Weight 208 lb 9 oz Weight 209 lb 12.8 oz I&O: 05/24/19 05/25/19 05/26/19 06:59 06:59 06:59 Intake Total 4700 3360 Output Total 3850 4600 Balance 850 -1240 Result Diagrams: 05/24/19 08:53 05/22/19 05:27 Additional Labs: Accuchecks 05/25/19 05/25/19 05/25/19 11:12 10:14 09:32 POC Glucose 180 H 200 H 255 H 05/25/19 05/24/19 05/24/19 05:52 20:49 16:57 POC Glucose 274 H 243 H 212 H Radiology Reviewed by me: Yes EKG Reviewed by me: Yes Hospitalist ROS - Review of Systems Eyes: denies: pain, vision change, conjunctivae inflammation, eyelid inflammation, redness, other ENT: denies: ear pain, ear discharge, nose pain, nose discharge, nose congestion , mouth pain, mouth swelling, throat pain, throat swelling, other Respiratory: denies: cough, dry, shortness of breath, hemoptysis, SOB with excertion, pleuritic pain, sputum, wheezing, other Cardiovascular: denies: chest pain, palpitations, orthopnea, paroxysmal noc. dyspnea, edema, light headedness, other Gastrointestinal: denies: nausea, vomiting, abdominal pain, diarrhea, constipation, melena, hematochezia, other Genitourinary: denies: dysuria, frequency, incontinence, hematuria, retention, other Musculoskeletal: denies: neck pain, shoulder pain, arm pain, back pain, hand pain, leg pain, foot pain, other Skin: denies: rash, lesions, sherrie, bruising, other - Medication Medications: Active Medications Generic Name Dose Route Start Last Admin Trade Name Freq PRN Reason Stop Dose Admin Acetaminophen 650 mg 05/21/19 12:48 05/24/19 17:11 Tylenol PO 650 mg Q4H PRN Administration Headache/Fever/Mild Pain (1-3) Dextrose/Water 25 gm 05/21/19 12:55 05/22/19 11:31 Dextrose 50% SLOW IVP 25 gm PRN PRN Administration Hypoglycemia Enoxaparin Sodium 40 mg 05/25/19 09:00 05/25/19 07:37 Lovenox SC Not Given 0900 [facility] Famotidine 20 mg 05/21/19 21:00 05/25/19 08:13 Pepcid PO 20 mg BID RICHARD Administration Glyburide 2.5 mg 05/23/19 17:00 05/25/19 07:37 Diabeta PO Not Given 0730,1700 [facility] Insulin Glargine 5 units/ 0.05 mls @ 0 mls/hr 05/25/19 09:00 05/25/19 07:38 Miscellaneous Medication SC Not Given QAM [facility] Cefepime HCl 2 gm/ Sodium 100 mls @ 200 mls/hr 05/25/19 01:00 05/25/19 00:25 Chloride IVPB 100 mls 0100,1300 [facility] Administration Insulin Human Lispro 0 units 05/21/19 12:55 05/24/19 17:15 Humalog SC 3 unit .MILD SLIDING SCALE PRN Administration Mild Correctional Scale Insulin Human Lispro 0 units 05/21/19 12:55 05/21/19 20:51 Humalog SC 4 unit/kg .BEDTIME SLIDING SC PRN Administration Bedtime Correctional Scale Lisinopril 20 mg 05/24/19 09:00 05/24/19 08:48 Zestril PO 20 mg DAILY RICHARD Administration Metoprolol Succinate 50 mg 05/23/19 09:00 05/25/19 08:13 Toprol Xl PO 50 mg DAILY RICHARD Administration Metoprolol Succinate 25 mg 05/22/19 21:00 05/24/19 21:03 Toprol Xl PO 25 mg QPM RICHARD Administration Metronidazole 500 mg 05/24/19 21:00 05/25/19 08:14 Flagyl PO 500 mg TID RICHARD Administration Sodium Chloride 10 ml 05/24/19 21:00 05/24/19 21:04 Flush - Normal Saline IVF 10 ml Q12HR RICHARD Administration - Exam General Appearance: NAD, awake alert Eye: PERRL, anicteric sclera ENT: normocephalic atraumatic, no oropharyngeal lesions Neck: supple, symmetric, no JVD, no thyromegaly Heart: RRR, no murmur, no gallops, no rubs Respiratory: CTAB, no wheezes, no rales, no ronchi Gastrointestinal: soft, non-tender, non-distended, normal bowel sounds Extremities: no cyanosis, no clubbing Extremities - other findings: left foot surgery dressing Skin: normal turgor, no lesions Neurological: cranial nerve grossly intact, no focal deficits Musculoskeletal: normal tone, normal strength Psychiatric: normal affect, normal behavior Hosp A/P (1) Sepsis Code(s): A41.9 - SEPSIS, UNSPECIFIED ORGANISM Status: Acute (2) Diabetes type 2, controlled Code(s): E11.9 - TYPE 2 DIABETES MELLITUS WITHOUT COMPLICATIONS Status: Acute Qualifiers: Diabetes mellitus jail insulin use: with terminal supervisor use Diabetes mellitus complication status: with circulatory complication (3) Afib Code(s): I48.91 - UNSPECIFIED ATRIAL FIBRILLATION Status: Chronic Qualifiers: Atrial fibrillation type: paroxysmal Qualified Code(s): I48.0 - Paroxysmal atrial fibrillation (4) PVD (peripheral vascular disease) Code(s): I73.9 - PERIPHERAL VASCULAR DISEASE, UNSPECIFIED Status: Acute (5) Amputated toe Code(s): Z89.429 - ACQUIRED ABSENCE OF OTHER TOE(S), UNSPECIFIED SIDE Status: Acute (6) Diabetic toe ulcer Code(s): E11.621 - TYPE 2 DIABETES MELLITUS WITH FOOT ULCER; L97.509 - NON- PRESSURE CHRONIC ULCER OTH PRT UNSP FOOT W UNSP SEVERITY Status: Acute Qualifiers: Diabetes mellitus type: type 2 Laterality: left - Plan old records reviewed/req, plan discussed w/ family, continue antibiotics 05/25/19, continue cefepime, home medication reviewed and symptomatic treatment
[2019-05-25] MEDS: Lisinopril 20 MG TAB PO SCH (13:54)
--- NOTE | 2019-05-25 18:38 | CON ---
DATE OF CONSULTATION: 05/25/2019 HISTORY OF PRESENT ILLNESS: Mr. Kennedy Pizarro is a 69-year-old gentleman, referred for evaluation for hyperbaric oxygen therapy subsequent to left transmetatarsal amputation. The patient's medical history significant for diabetes mellitus. The patient underwent the preceding procedure earlier today by Dr. Ferguson. Mr. Pizarro was admitted to [facility] on 05/21/2019 with gangrenous left second, third, and fourth toes. PAST MEDICAL HISTORY: 1. Hypertension. 2. Diabetes mellitus. 3. Atrial fibrillation. 4. Peripheral vascular disease. PAST SURGICAL HISTORY: 1. Left inguinal hernia repair. 2. Tonsillectomy. 3. Ray amputation of right great toe. 4. Right second toe ray amputation. 5. Left transmetatarsal amputation as per HPI. MEDICATIONS: On admission: 1. Metformin. 2. Glyburide. 3. Aspirin. ALLERGIES: TETRACYCLINE AND MACADAMIA NUTS. SOCIAL HISTORY: Negative for tobacco or EtOH use. FAMILY HISTORY: Family history is negative for diabetes mellitus or coronary artery disease. PHYSICAL EXAMINATION: VITAL SIGNS: Temperature 98.3, pulse 98, respirations 16, and blood pressure 152/86. GENERAL: A 69-year-old gentleman, lying on stretcher in hyperbaric lab, in no acute distress. HEENT: Normocephalic and atraumatic. NECK: No nuchal rigidity. CHEST: Clear to auscultation. CV: Regular rate and rhythm. ABDOMEN: Soft. EXTREMITIES: The left foot is dressed with Kerlix and an Diego bandage following left transmetatarsal amputation. NEUROLOGIC: Grossly nonfocal. ASSESSMENT AND PLAN: A 69-year-old gentleman, referred for evaluation for hyperbaric oxygen therapy subsequent to left transmetatarsal amputation. The patient's medical history significant for diabetes mellitus. The patient denies any history of congestive heart failure, seizures, pneumothorax, crushing chest trauma, recent retinal surgery, blood disorders including hereditary spherocytosis or the administration of any chemotherapeutic agents contraindicating hyperbaric oxygen therapy. The patient understands the risks and benefits of hyperbaric oxygen therapy and wishes to proceed. The patient will be treated at 2.0 YOSEPH with each session lasting 90 minutes. The length of therapy will depend upon the patient's response to hyperbaric oxygen therapy in conjunction with serial examination of the wound. Job ID: [id number]
[2019-05-25] MEDS: HumaLOG 300 UNITS/3 ML VIAL SC PRN ×2 (18:48→21:48)
--- NOTE | 2019-05-25 20:37 | OP ---
DATE OF PROCEDURE: 05/25/2019 PREOPERATIVE DIAGNOSES: Distal left foot gangrene, left foot infection, severe peripheral arterial disease, diabetic neuropathy. POSTOPERATIVE DIAGNOSES: Distal left foot gangrene, left foot infection, severe peripheral arterial disease, diabetic neuropathy. PROCEDURE PERFORMED: Left foot open transmetatarsal amputation. SELECTOR PACKER: Hammad Jesus, medical student. ANESTHESIA: General endotracheal. INDICATIONS: The patient is a 69-year-old diabetic white male. He has had prior toe amputations on the right foot. He presented at this time with a swollen, infected left foot. He was treated with antibiotics and his fever and white blood cell count diminished, however, he developed progressive ischemic changes progressing to cutaneous necrosis involving the third and fourth toes. He also had evidence of severe infection and devascularization of the second toe. He had undergone arteriography per Dr. Knight with findings of severe peripheral arterial disease. Because of the extent of the disease, I had recommended a left [id number] amputation, which the patient refused. He preferred to proceed with a left transmetatarsal amputation with postoperative hyperbaric oxygen treatment in hopes of allowing healing. He was taken to the operating room at this time for this purpose. DESCRIPTION OF OPERATION: Informed consent was obtained. The patient was taken to the operating room, where general endotracheal anesthesia was obtained with the patient in supine position. Left leg was prepped with ChloraPrep and draped in sterile fashion. An incision was created across the distal dorsum of the foot proximal to the toes and proximal to the area of necrosis. The incision was circumferentially around the foot, so as to leave a longer plantar flap. Upon incising the dorsum, purulence was encountered. Dissection was carried through this soft tissue down to the bone on the dorsum. The plantar flap was dissected as well. The dissection was carried out with electrocautery. I then transected each of the bones in the distal metatarsal using the rib arnold and the specimen was passed off the field. Although there had been reasonable cutaneous bleeding, there was scant deeper bleeding within the wound. There was no obviously necrotic tissue, but there was also no dominant pulsatile arterial structures either. The infection and the purulence were isolated to a pocket within the dorsum of the foot with some purulence. Cultures were obtained of this. This extended subcutaneously for 1.5 to 2 cm proximally. The tissue within this area was debrided. Aartiurs were used to trim each of the bones back a centimeter or so until all edges were smoothed and appropriately covered by soft tissue. Meticulous hemostasis was achieved. The wound was thoroughly irrigated with saline. I placed a gauze dressing within the soft tissue as well as a circumferential wrap of Kerlix gauze. A compression dressing was then placed using Coban. There were no complications. Blood loss was minimal. The patient tolerated the procedure well and was taken to recovery room in stable condition. Job ID: [id number]
[2019-05-26] MEDS: Cefepime 2 GM in Sodium Chloride 0.9% 100 ML IVPB SCH ×3 (00:17→14:15)
[2019-05-26 08:01] LABS: #Eosinphils 0.2 thou/uL (0.0-0.7); #Monocytes 0.9 thou/uL (0.11-0.59); #Neutrophils 8.4 thou/uL (1.40-6.50); %Basophils 0.2 % (0.0-1.0); %Eosinophils 1.5 % (0.0-10.0); %Lymphocytes 17.3 % (21.0-51.0); %Monocytes 7.9 % (0.0-10.0); %Neutrophils 73.1 % (42.0-75.0); Hemoglobin 9.8 g/dL (14.0-18.0); Mean Corpuscular HGB CONC 33.5 g/dL (32.0-36.0); Mean Corpuscular Hemoglobin 28.8 pg (27.0-31.0); Mean Corpuscular Volume 86.1 fL (78.0-98.0); Mean Platelet Volume 6.3 fL (7.4-10.4); Platelet Count 549 thou/uL (130-400); RBC Distribution Width 12.1 % (11.5-14.5); Red Blood Cell (RBC) Count 3.39 mill/uL (4.70-6.10); White Blood Cell (WBC) Count 11.4 thou/uL (4.8-10.8)
[2019-05-26 08:03] LABS: Hemoglobin 9.7 g/dL (14.0-18.0); Platelet Count 539 thou/uL (130-400)
[2019-05-26 08:17] LABS: Anion Gap 12 mmol/L (10-20); BUN (Urea Nitrogen) 15 mg/dL (8.4-25.7); Calc. Creatinine Clearance 91 mL/min (70-130); Calcium 8.7 mg/dL (7.8-10.44); Carbon Dioxide 26 mmol/L (23-31); Chloride 99 mmol/L (98-107); Estimated GFR-MDRD 72; Glucose 215 mg/dL (80-115); Potassium 4.4 mmol/L (3.5-5.1); Sodium 133 mmol/L (136-145)
[2019-05-26] MEDS: metroNIDAZOLE 500 MG TAB PO SCH ×3 (08:27→19:55)
[2019-05-26] MEDS: Famotidine 20 MG TAB PO SCH ×2 (08:28→19:55)
[2019-05-26] MEDS: Lisinopril 20 MG TAB PO SCH (08:28)
[2019-05-26] MEDS: Enoxaparin Sodium 40 MG/0.4 ML SYRINGE SC SCH (10:52)
[2019-05-26] MEDS: Insulin Glargine 5 UNITS in Pre-Filled Syringe 1 EACH SC SCH (10:53)
[2019-05-26] MEDS: glyBURIDE 5 MG TAB PO SCH ×2 (10:54→17:36)
--- NOTE | 2019-05-26 11:28 | PDOC.HOSPP ---
- Subjective Encounter Date: 05/26/19 Encounter Time: 11:27 Subjective: Patient seen and examined. No new complaints. No overnight events, s/p hyperbaric oxygen therapy - Objective Vital Signs & Weight: Vital Signs (12 hours) Temp Pulse Resp BP BP BP Pulse Ox 05/26/19 08:28 145/67 H 05/26/19 08:00 98.8 F 100 18 145/67 H 98 05/26/19 01:09 98.2 F 97 20 136/68 96 Weight Admit Weight 208 lb 9 oz Weight 209 lb 1.6 oz I&O: 05/25/19 05/26/19 05/27/19 06:59 06:59 06:59 Intake Total 3360 1420 Output Total 4600 2440 Balance -1240 -1020 Result Diagrams: 05/26/19 07:33 05/26/19 07:33 Additional Labs: Accuchecks 05/26/19 05/26/19 05/25/19 10:42 05:22 20:35 POC Glucose 213 H 223 H 266 H 05/25/19 05/25/19 18:41 11:12 POC Glucose 255 H 180 H EKG Reviewed by me: Yes Hospitalist ROS - Review of Systems Constitutional: denies: fever, chills, sweats, weakness, malaise, other Eyes: denies: pain, vision change, conjunctivae inflammation, eyelid inflammation, redness, other ENT: denies: ear pain, ear discharge, nose pain, nose discharge, nose congestion , mouth pain, mouth swelling, throat pain, throat swelling, other Respiratory: denies: cough, dry, shortness of breath, hemoptysis, SOB with excertion, pleuritic pain, sputum, wheezing, other Cardiovascular: denies: chest pain, palpitations, orthopnea, paroxysmal noc. dyspnea, edema, light headedness, other Gastrointestinal: denies: nausea, vomiting, abdominal pain, diarrhea, constipation, melena, hematochezia, other Genitourinary: denies: dysuria, frequency, incontinence, hematuria, retention, other Musculoskeletal: denies: neck pain, shoulder pain, arm pain, back pain, hand pain, leg pain, foot pain, other Skin: denies: rash, lesions, sherrie, bruising, other - Medication Medications: Active Medications Generic Name Dose Route Start Last Admin Trade Name Freq PRN Reason Stop Dose Admin Acetaminophen 650 mg 05/21/19 12:48 05/24/19 17:11 Tylenol PO 650 mg Q4H PRN Administration Headache/Fever/Mild Pain (1-3) Hydrocodone Bitart/Acetaminophen 1 tab 05/21/19 12:48 05/26/19 00:19 [place] 5/325 PO 1 tab Q4H PRN Administration Moderate Pain (4-6) Dextrose/Water 25 gm 05/21/19 12:55 05/22/19 11:31 Dextrose 50% SLOW IVP 25 gm PRN PRN Administration Hypoglycemia Enoxaparin Sodium 40 mg 05/25/19 09:00 05/26/19 10:52 Lovenox SC 40 mg 0900 RICHARD Administration Famotidine 20 mg 05/21/19 21:00 05/26/19 08:28 Pepcid PO 20 mg BID RICHARD Administration Glyburide 2.5 mg 05/23/19 17:00 05/26/19 10:54 Diabeta PO 2.5 mg 0730,1700 RICHARD Administration Insulin Glargine 5 units/ 0.05 mls @ 0 mls/hr 05/25/19 09:00 05/26/19 10:53 Miscellaneous Medication SC 0.05 mls QAM RICHARD Administration Cefepime HCl 2 gm/ Sodium 100 mls @ 200 mls/hr 05/25/19 01:00 05/26/19 00:17 Chloride IVPB 100 mls 0100,1300 RICHARD Administration Insulin Human Lispro 0 units 05/21/19 12:55 05/25/19 18:48 Humalog SC 5 unit .MILD SLIDING SCALE PRN Administration Mild Correctional Scale Insulin Human Lispro 0 units 05/21/19 12:55 05/25/19 21:48 Humalog SC 3 unit/kg .BEDTIME SLIDING SC PRN Administration Bedtime Correctional Scale Lisinopril 20 mg 05/24/19 09:00 05/26/19 08:28 Zestril PO 20 mg DAILY RICHARD Administration Metoprolol Succinate 50 mg 05/23/19 09:00 05/26/19 08:28 Toprol Xl PO 50 mg DAILY RICHARD Administration Metoprolol Succinate 25 mg 05/22/19 21:00 05/25/19 21:48 Toprol Xl PO 25 mg QPM RICHARD Administration Metronidazole 500 mg 05/24/19 21:00 05/26/19 08:27 Flagyl PO 500 mg TID RICHARD Administration Sodium Chloride 10 ml 05/24/19 21:00 05/26/19 10:53 Flush - Normal Saline IVF 10 ml Q12HR RICHARD Administration - Exam General Appearance: NAD, awake alert Eye: PERRL, anicteric sclera ENT: normocephalic atraumatic, no oropharyngeal lesions Neck: supple, symmetric, no JVD, no thyromegaly Heart: RRR, no murmur, no gallops, no rubs Respiratory: CTAB, no wheezes, no rales, no ronchi Gastrointestinal: soft, non-tender, non-distended, normal bowel sounds Extremities: no cyanosis, no clubbing, no edema Extremities - other findings: left foot with dressing Skin: normal turgor, no lesions Neurological: no focal deficits Musculoskeletal: normal tone, normal strength Psychiatric: normal affect, normal behavior Hosp A/P (1) Sepsis Code(s): A41.9 - SEPSIS, UNSPECIFIED ORGANISM Status: Acute (2) Diabetes type 2, controlled Code(s): E11.9 - TYPE 2 DIABETES MELLITUS WITHOUT COMPLICATIONS Status: Acute Qualifiers: 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 use Diabetes mellitus complication status: with circulatory complication (3) Afib Code(s): I48.91 - UNSPECIFIED ATRIAL FIBRILLATION Status: Chronic Qualifiers: Atrial fibrillation type: paroxysmal Qualified Code(s): I48.0 - Paroxysmal atrial fibrillation (4) PVD (peripheral vascular disease) Code(s): I73.9 - PERIPHERAL VASCULAR DISEASE, UNSPECIFIED Status: Acute (5) Amputated toe Code(s): Z89.429 - ACQUIRED ABSENCE OF OTHER TOE(S), UNSPECIFIED SIDE Status: Acute (6) Diabetic toe ulcer Code(s): E11.621 - TYPE 2 DIABETES MELLITUS WITH FOOT ULCER; L97.509 - NON- PRESSURE CHRONIC ULCER OTH PRT UNSP FOOT W UNSP SEVERITY Status: Acute Qualifiers: Diabetes mellitus type: type 2 Laterality: left - Plan old records reviewed/req, continue antibiotics 05/25/19, continue cefepime, home medication reviewed and symptomatic treatment 05/26/19, continue cefepime, wound care, hyperbaric oxygen therapy, medication reviewed and continue supportive care
[2019-05-26] MEDS: HumaLOG 300 UNITS/3 ML VIAL SC PRN ×2 (13:50→17:35)
--- NOTE | 2019-05-26 15:55 | PRG ---
DATE OF SERVICE: 05/26/2019 SUBJECTIVE: Mr. Pizarro is postoperative day #1 from left transmetatarsal amputation. This is an open wound secondary to infection within the foot. He has no significant complaints. He denies significant pain. He has undergone 2 hyperbaric oxygen treatments yesterday and today. He is scheduled for his next treatment on Wednesday in regard to that. Wound care team is involved with dressing changes. Cultures from the pus visualized within his foot at the time of surgery are in progress. The Gram stain showed gram-positive cocci in clusters. OBJECTIVE: VITAL SIGNS: Temperature 98.2, pulse 91, and blood pressure 148/70. He has been afebrile since surgery. Examination is limited to his foot at this time. The dressing is intact with an Diego wrap. LABORATORY DATA: His hemoglobin is stable at 9.8, white blood cell count is 11.4. His electrolytes are essentially normal. His glucose remains elevated between 215 and 260. ASSESSMENT: In summary, he is doing well following transmetatarsal amputation. He will continue with wound care, antibiotics, and hyperbaric oxygen. He should be ready for discharge sometime this next week. I will re-examine his foot on Wednesday. Wound care team will continue to perform daily dressing changes. Job ID: [id number]
[2019-05-27] MEDS: Cefepime 2 GM in Sodium Chloride 0.9% 100 ML IVPB SCH ×2 (01:39→14:25)
[2019-05-27] MEDS: Enoxaparin Sodium 40 MG/0.4 ML SYRINGE SC SCH (09:00)
[2019-05-27] MEDS: metroNIDAZOLE 500 MG TAB PO SCH ×3 (09:01→20:23)
[2019-05-27] MEDS: glyBURIDE 5 MG TAB PO SCH ×2 (09:01→17:43)
[2019-05-27] MEDS: Famotidine 20 MG TAB PO SCH ×2 (09:01→20:23)
[2019-05-27] MEDS: Lisinopril 20 MG TAB PO SCH (09:01)
[2019-05-27] MEDS: Insulin Glargine 5 UNITS in Pre-Filled Syringe 1 EACH SC SCH (09:04)
--- NOTE | 2019-05-27 10:08 | PDOC.HOSPP ---
- Subjective Encounter Date: 05/27/19 Encounter Time: 07:40 Subjective: no specific complaint. - Objective Vital Signs & Weight: Vital Signs (12 hours) Temp Pulse Resp BP BP Pulse Ox 05/27/19 09:01 156/72 H 05/27/19 08:05 98.5 F 92 18 156/72 H 97 05/27/19 07:15 95 05/27/19 04:25 99.7 F H 86 18 123/60 95 Weight Admit Weight 208 lb 9 oz Weight 207 lb 6.4 oz I&O: 05/26/19 05/27/19 05/28/19 06:59 06:59 06:59 Intake Total 1420 1720 Output Total 2440 1645 Balance -1020 75 Result Diagrams: 05/26/19 07:33 05/26/19 07:33 Additional Labs: Accuchecks 05/27/19 05/26/19 05/26/19 05:53 20:32 17:01 POC Glucose 173 H 193 H 206 H 05/26/19 10:42 POC Glucose 213 H Hospitalist ROS - Medication Medications: Active Medications Generic Name Dose Route Start Last Admin Trade Name Freq PRN Reason Stop Dose Admin Acetaminophen 650 mg 05/21/19 12:48 05/24/19 17:11 Tylenol PO 650 mg Q4H PRN Administration Headache/Fever/Mild Pain (1-3) Hydrocodone Bitart/Acetaminophen 1 tab 05/21/19 12:48 05/26/19 00:19 [place] 5/325 PO 1 tab Q4H PRN Administration Moderate Pain (4-6) Dextrose/Water 25 gm 05/21/19 12:55 05/22/19 11:31 Dextrose 50% SLOW IVP 25 gm PRN PRN Administration Hypoglycemia Enoxaparin Sodium 40 mg 05/25/19 09:00 05/27/19 09:00 Lovenox SC 40 mg 0900 RICHARD Administration Famotidine 20 mg 05/21/19 21:00 05/27/19 09:01 Pepcid PO 20 mg BID RICHARD Administration Glyburide 2.5 mg 05/23/19 17:00 05/27/19 09:01 Diabeta PO 2.5 mg 0730,1700 RICHARD Administration Insulin Glargine 5 units/ 0.05 mls @ 0 mls/hr 05/25/19 09:00 05/27/19 09:04 Miscellaneous Medication SC 0.05 mls QAM RICHARD Administration Cefepime HCl 2 gm/ Sodium 100 mls @ 200 mls/hr 05/26/19 14:00 05/27/19 01:39 Chloride IVPB 100 mls 0200,1400 RICHARD Administration Insulin Human Lispro 0 units 05/21/19 12:55 05/26/19 17:35 Humalog SC 3 unit .MILD SLIDING SCALE PRN Administration Mild Correctional Scale Insulin Human Lispro 0 units 05/21/19 12:55 05/25/19 21:48 Humalog SC 3 unit/kg .BEDTIME SLIDING SC PRN Administration Bedtime Correctional Scale Lisinopril 20 mg 05/24/19 09:00 05/27/19 09:01 Zestril PO 20 mg DAILY RICHARD Administration Metoprolol Succinate 50 mg 05/23/19 09:00 05/27/19 09:00 Toprol Xl PO 50 mg DAILY RICHARD Administration Metoprolol Succinate 25 mg 05/22/19 21:00 05/26/19 19:55 Toprol Xl PO 25 mg QPM RICHARD Administration Metronidazole 500 mg 05/24/19 21:00 05/27/19 09:01 Flagyl PO 500 mg TID RICHARD Administration Sodium Chloride 10 ml 05/24/19 21:00 05/27/19 09:00 Flush - Normal Saline IVF 10 ml Q12HR RICHARD Administration - Exam General Appearance: NAD ENT: normocephalic atraumatic Neck: no JVD Heart: irregular Respiratory: CTAB Gastrointestinal: soft Extremities - other findings: Left foot wound, s/p TMA Neurological: no focal deficits Psychiatric: normal affect, A&O x 3 Hosp A/P (1) Diabetes type 2, controlled Code(s): E11.9 - TYPE 2 DIABETES MELLITUS WITHOUT COMPLICATIONS Status: Acute Qualifiers: 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 Diabetes mellitus complication status: with circulatory complication (2) PVD (peripheral vascular disease) Code(s): I73.9 - PERIPHERAL VASCULAR DISEASE, UNSPECIFIED Status: Acute (3) Sepsis Code(s): A41.9 - SEPSIS, UNSPECIFIED ORGANISM Status: Acute Plan: s/p left TMA (4) Afib Code(s): I48.91 - UNSPECIFIED ATRIAL FIBRILLATION Status: Chronic Qualifiers: Atrial fibrillation type: paroxysmal Qualified Code(s): I48.0 - Paroxysmal atrial fibrillation (5) Amputated toe Code(s): Z89.429 - ACQUIRED ABSENCE OF OTHER TOE(S), UNSPECIFIED SIDE Status: Acute - Plan Continue antibiotics, hyperbaric therapy..
[2019-05-27] MEDS: Acetaminophen 325 MG TAB PO PRN (11:39)
[2019-05-27] MEDS: HumaLOG 300 UNITS/3 ML VIAL SC PRN ×3 (11:39→20:41)
[2019-05-28] MEDS: Cefepime 2 GM in Sodium Chloride 0.9% 100 ML IVPB SCH ×2 (01:57→14:47)
[2019-05-28] MEDS: glyBURIDE 5 MG TAB PO SCH ×2 (07:42→18:06)
[2019-05-28] MEDS: HumaLOG 300 UNITS/3 ML VIAL SC PRN ×4 (07:49→20:36)
[2019-05-28] MEDS: Insulin Glargine 5 UNITS in Pre-Filled Syringe 1 EACH SC SCH (09:39)
[2019-05-28 09:57] LABS: Hemoglobin 9.5 g/dL (14.0-18.0); Platelet Count 515 thou/uL (130-400)
--- NOTE | 2019-05-28 10:02 | PDOC.HOSPP ---
- Subjective Encounter Date: 05/28/19 Encounter Time: 08:25 Subjective: No new complaint.. - Objective Vital Signs & Weight: Vital Signs (12 hours) Temp Pulse Resp BP Pulse Ox 05/28/19 07:32 98.8 F 93 18 155/74 H 94 L 05/28/19 04:00 98.7 F 85 16 133/66 94 L 05/27/19 23:49 99.3 F Weight Admit Weight 208 lb 9 oz Weight 203 lb 1.6 oz I&O: 05/27/19 05/28/19 05/29/19 06:59 06:59 06:59 Intake Total 1720 1840 Output Total 1645 3200 Balance 75 -1360 Result Diagrams: 05/28/19 09:38 05/26/19 07:33 Additional Labs: Accuchecks 05/28/19 05/27/19 05/27/19 05:52 20:24 17:03 POC Glucose 282 H 306 H 270 H 05/27/19 10:42 POC Glucose 254 H Hospitalist ROS - Medication Medications: Active Medications Generic Name Dose Route Start Last Admin Trade Name Freq PRN Reason Stop Dose Admin Acetaminophen 650 mg 05/21/19 12:48 05/27/19 11:39 Tylenol PO 650 mg Q4H PRN Administration Headache/Fever/Mild Pain (1-3) Hydrocodone Bitart/Acetaminophen 1 tab 05/21/19 12:48 05/26/19 00:19 [place] 5/325 PO 1 tab Q4H PRN Administration Moderate Pain (4-6) Dextrose/Water 25 gm 05/21/19 12:55 05/22/19 11:31 Dextrose 50% SLOW IVP 25 gm PRN PRN Administration Hypoglycemia Enoxaparin Sodium 40 mg 05/25/19 09:00 05/27/19 09:00 Lovenox SC 40 mg 0900 RICHARD Administration Famotidine 20 mg 05/21/19 21:00 05/27/19 20:23 Pepcid PO 20 mg BID RICHARD Administration Glyburide 2.5 mg 05/23/19 17:00 05/28/19 07:42 Diabeta PO 2.5 mg 0730,1700 RICHARD Administration Insulin Glargine 5 units/ 0.05 mls @ 0 mls/hr 05/25/19 09:00 05/28/19 09:39 Miscellaneous Medication SC 0.05 mls QAM RICHARD Administration Cefepime HCl 2 gm/ Sodium 100 mls @ 200 mls/hr 05/26/19 14:00 05/28/19 01:57 Chloride IVPB 100 mls 0200,1400 RICHARD Administration Insulin Human Lispro 0 units 05/21/19 12:55 05/28/19 07:49 Humalog SC 4 unit .MILD SLIDING SCALE PRN Administration Mild Correctional Scale Insulin Human Lispro 0 units 05/21/19 12:55 05/27/19 20:41 Humalog SC 4 unit .BEDTIME SLIDING SC PRN Administration Bedtime Correctional Scale Lisinopril 20 mg 05/24/19 09:00 05/27/19 09:01 Zestril PO 20 mg DAILY RICHARD Administration Metoprolol Succinate 50 mg 05/23/19 09:00 05/27/19 09:00 Toprol Xl PO 50 mg DAILY RICHARD Administration Metoprolol Succinate 25 mg 05/22/19 21:00 05/27/19 20:23 Toprol Xl PO 25 mg QPM RICHARD Administration Metronidazole 500 mg 05/24/19 21:00 05/27/19 20:23 Flagyl PO 500 mg TID RICHARD Administration Sodium Chloride 10 ml 05/24/19 21:00 05/27/19 20:23 Flush - Normal Saline IVF 10 ml Q12HR RICHARD Administration - Exam Neck: no JVD Heart: RRR Respiratory: CTAB Gastrointestinal: soft Extremities - other findings: s/p left TMA.. 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-term use Diabetes mellitus complication status: with circulatory complication (2) PVD (peripheral vascular disease) Code(s): I73.9 - PERIPHERAL VASCULAR DISEASE, UNSPECIFIED Status: Acute (3) Sepsis Code(s): A41.9 - SEPSIS, UNSPECIFIED ORGANISM Status: Acute (4) Afib Code(s): I48.91 - UNSPECIFIED ATRIAL FIBRILLATION Status: Chronic Qualifiers: Atrial fibrillation type: paroxysmal Qualified Code(s): I48.0 - Paroxysmal atrial fibrillation (5) Amputated toe Code(s): Z89.429 - ACQUIRED ABSENCE OF OTHER TOE(S), UNSPECIFIED SIDE Status: Acute - Plan s/p left TMA Continue antibiotics, hyperbaric therapy..
[2019-05-28] MEDS: Enoxaparin Sodium 40 MG/0.4 ML SYRINGE SC SCH (10:45)
[2019-05-28] MEDS: Famotidine 20 MG TAB PO SCH ×2 (10:46→20:32)
[2019-05-28] MEDS: Lisinopril 20 MG TAB PO SCH (10:46)
[2019-05-28] MEDS: metroNIDAZOLE 500 MG TAB PO SCH ×3 (10:47→20:32)
--- NOTE | 2019-05-28 16:00 | PRG ---
DATE OF SERVICE: 05/28/2019 SUBJECTIVE: The patient had a transmetatarsal amputation by Dr. Ferguson. Marty has a negative pressure dressing, has already started hyperbarics. No respiratory symptoms or abdominal pain. He is voiding without difficulty. OBJECTIVE: VITAL SIGNS: His T-max 99.4. Other vital signs with slight elevation of systolic blood pressure. GENERAL: Appears oriented. No distress. Pleasant. HEENT: Ocular movements conjugate. Oral cavity normal. NECK: Supple. LUNGS: Symmetric. Clear breath sounds. HEART: S1 and S2. Regular rate. ABDOMEN: Soft. Not distended. EXTREMITIES: Left foot with negative pressure dressing. LABORATORY DATA: White cell count 11.4, hemoglobin 9.8, platelets 549, creatinine 1.03, sodium 133. Microbiology with Staph lugdunensis and E coli from the foot. Medications include cefepime and metronidazole. ASSESSMENT AND DISCUSSION: Peripheral vascular disease gangrene third and fourth toes status post transmetatarsal amputation below the trifurcation disease with no revascularization options. Continue gross cefepime and Flagyl. Continue hyperbaric treatments. Endpoint will be granulation of the wound, but he will he may be at high risk for below-knee amputation. Job ID: [id number]
[2019-05-29] MEDS: Cefepime 2 GM in Sodium Chloride 0.9% 100 ML IVPB SCH ×2 (01:12→14:02)
[2019-05-29] MEDS: Insulin Glargine 5 UNITS in Pre-Filled Syringe 1 EACH SC SCH (08:15)
[2019-05-29] MEDS: Enoxaparin Sodium 40 MG/0.4 ML SYRINGE SC SCH (08:15)
[2019-05-29] MEDS: Lisinopril 20 MG TAB PO SCH (08:16)
[2019-05-29] MEDS: metroNIDAZOLE 500 MG TAB PO SCH ×3 (08:16→20:26)
[2019-05-29] MEDS: glyBURIDE 5 MG TAB PO SCH ×2 (08:16→17:36)
[2019-05-29] MEDS: Famotidine 20 MG TAB PO SCH ×2 (08:16→20:26)
[2019-05-29] MEDS: HumaLOG 300 UNITS/3 ML VIAL SC PRN (11:28)
[2019-05-29 13:13] VITALS: BMI 27.3
--- NOTE | 2019-05-29 13:45 | PDOC.HOSPP ---
- Subjective Encounter Date: 05/29/19 Encounter Time: 13:44 Subjective: left foot dressing is being replaced, no complains of pain - Objective Vital Signs & Weight: Vital Signs (12 hours) Temp Pulse Resp BP BP Pulse Ox 05/29/19 11:18 97.8 F 95 16 152/77 H 96 05/29/19 08:00 98.1 F 83 16 153/74 H 98 05/29/19 04:00 98.4 F 79 14 147/69 H 97 Weight Admit Weight 208 lb 9 oz Weight 202 lb 2 oz I&O: 05/28/19 05/29/19 05/30/19 06:59 06:59 06:59 Intake Total 1840 5090 Output Total 3200 4150 Balance -1360 940 Result Diagrams: 05/28/19 09:38 05/26/19 07:33 Additional Labs: Accuchecks 05/29/19 05/29/19 05/28/19 11:11 06:27 20:37 POC Glucose 313 H 199 H 212 H 05/28/19 16:47 POC Glucose 227 H Hospitalist ROS - Medication Medications: Active Medications Generic Name Dose Route Start Last Admin Trade Name Freq PRN Reason Stop Dose Admin Acetaminophen 650 mg 05/21/19 12:48 05/27/19 11:39 Tylenol PO 650 mg Q4H PRN Administration Headache/Fever/Mild Pain (1-3) Hydrocodone Bitart/Acetaminophen 1 tab 05/21/19 12:48 05/26/19 00:19 [place] 5/325 PO 1 tab Q4H PRN Administration Moderate Pain (4-6) Dextrose/Water 25 gm 05/21/19 12:55 05/22/19 11:31 Dextrose 50% SLOW IVP 25 gm PRN PRN Administration Hypoglycemia Enoxaparin Sodium 40 mg 05/25/19 09:00 05/29/19 08:15 Lovenox SC 40 mg 0900 RICHARD Administration Famotidine 20 mg 05/21/19 21:00 05/29/19 08:16 Pepcid PO 20 mg BID RICHARD Administration Glyburide 2.5 mg 05/23/19 17:00 05/29/19 08:16 Diabeta PO 2.5 mg 0730,1700 RICHARD Administration Insulin Glargine 5 units/ 0.05 mls @ 0 mls/hr 05/25/19 09:00 05/29/19 08:15 Miscellaneous Medication SC 0.05 mls QAM RICHARD Administration Cefepime HCl 2 gm/ Sodium 100 mls @ 200 mls/hr 05/26/19 14:00 05/29/19 01:12 Chloride IVPB 100 mls 0200,1400 RICHARD Administration Insulin Human Lispro 0 units 05/21/19 12:55 05/29/19 11:28 Humalog SC 5 unit .MILD SLIDING SCALE PRN Administration Mild Correctional Scale Insulin Human Lispro 0 units 05/21/19 12:55 05/28/19 20:36 Humalog SC 2 unit .BEDTIME SLIDING SC PRN Administration Bedtime Correctional Scale Lisinopril 20 mg 05/24/19 09:00 05/29/19 08:16 Zestril PO 20 mg DAILY RICHARD Administration Metoprolol Succinate 50 mg 05/23/19 09:00 05/29/19 08:15 Toprol Xl PO 50 mg DAILY RICHARD Administration Metoprolol Succinate 25 mg 05/22/19 21:00 05/28/19 20:32 Toprol Xl PO 25 mg QPM RICHARD Administration Metronidazole 500 mg 05/24/19 21:00 05/29/19 08:16 Flagyl PO 500 mg TID RICHARD Administration Sodium Chloride 10 ml 05/24/19 21:00 05/29/19 08:15 Flush - Normal Saline IVF 10 ml Q12HR RICHARD Administration - Exam General Appearance: awake alert Eye: PERRL, anicteric sclera ENT: normocephalic atraumatic, no oropharyngeal lesions, moist mucosa Neck: supple, symmetric, no JVD, no thyromegaly Heart: RRR, no murmur, no gallops, no rubs Respiratory: CTAB, no wheezes, no rales, no ronchi Gastrointestinal: soft, non-tender, non-distended, normal bowel sounds Extremities - other findings: left forefoot S/P debridement Neurological: cranial nerve grossly intact, normal sensation to touch, no weakness, no focal deficits Hosp A/P (1) PVD (peripheral vascular disease) Code(s): I73.9 - PERIPHERAL VASCULAR DISEASE, UNSPECIFIED Status: Acute (2) Sepsis Code(s): A41.9 - SEPSIS, UNSPECIFIED ORGANISM Status: Acute (3) Afib Code(s): I48.91 - UNSPECIFIED ATRIAL FIBRILLATION Status: Chronic Qualifiers: Atrial fibrillation type: paroxysmal Qualified Code(s): I48.0 - Paroxysmal atrial fibrillation (4) Amputated toe Code(s): Z89.429 - ACQUIRED ABSENCE OF OTHER TOE(S), UNSPECIFIED SIDE Status: Acute (5) Diabetic toe ulcer Code(s): E11.621 - TYPE 2 DIABETES MELLITUS WITH FOOT ULCER; L97.509 - NON- PRESSURE CHRONIC ULCER OTH PRT UNSP FOOT W UNSP SEVERITY Status: Acute Qualifiers: Diabetes mellitus type: type 2 Laterality: left - Plan old records reviewed/req s/p left TMA Continue antibiotics, hyperbaric therapy.. plans for wound vac Wound cx growing Staphylococcus and Enterobacter Continue cefepime and [place] Continue Lisinopril and Metoprolol
--- NOTE | 2019-05-29 16:23 | PRG ---
DATE OF SERVICE: 05/29/2019 SUBJECTIVE: Mr. Pizarro is postoperative day #4 following left foot open transmetatarsal amputation. He is resting comfortably in his bed on the telemetry floor. He tells me he is able to ambulate with pressure on his left heel when he goes to the bathroom. He denies any discomfort. He has not undergone any hyperbaric oxygen treatments over the weekend. The wound VAC was placed on Wednesday and was changed today by the Wound Care Team while I was visiting the patient. OBJECTIVE: It is noted that over the weekend, he has been afebrile with stable vital signs. Physical examination reveals that he still has some edema of his left lower leg. The dressing was removed, revealing essentially healthy tissues in the open transmetatarsal wound. There was reasonable granulation tissue on the proximal part of the amputation site. The plantar flap is not as viable in appearance (which is fairly typical for this flap). There is no evidence of necrosis. There is no foul smell. There is no evidence of purulence. The small pocket, where purulence was noted at the time of surgery superficially on the dorsum, is without evidence of infection today. Wound VAC was to be replaced. LABORATORY DATA: His last CBC was on the and revealed white blood cell count of 11. His hemoglobin on the (yesterday) was 9.5. Chemistry panel has not been obtained in the past 3 days. His blood sugar levels are still elevated. The culture of the purulence noted in his foot has revealed Staphylococcus lugdunensis. It is resistant to amoxicillin, penicillin, and piperacillin. It appears to be widely sensitive to the cephalosporins, one of which he is taking. ASSESSMENT AND PLAN: He is stable from a surgical standpoint. He should have a home wound VAC arranged and outpatient plans made for VAC dressing changes as well as outpatient hyperbaric oxygen treatments. As soon as these were arranged, he may be discharged at any time on an oral cephalosporin. Dr. Zurita may have some input in regard to his antibiotic preferences going forward. Job ID: [id number]
[2019-05-29] MEDS ORDERED: diphenhydrAMINE 50 MG CAP PO PRN (17:53)
[2019-05-30] MEDS: Cefepime 2 GM in Sodium Chloride 0.9% 100 ML IVPB SCH ×2 (01:08→14:12)
--- NOTE | 2019-05-30 09:21 | PDOC.HOSPP ---
- Subjective Encounter Date: 05/30/19 Encounter Time: 14:57 Subjective: doing well, working on cross word puzzle - Objective Vital Signs & Weight: Vital Signs (12 hours) Temp Pulse Resp BP Pulse Ox 05/30/19 04:00 99.2 F 73 14 139/68 92 L Weight Admit Weight 208 lb 9 oz Weight 197 lb I&O: 05/29/19 05/30/19 05/31/19 06:59 06:59 06:59 Intake Total 5090 2740 Output Total 4150 3050 Balance 940 -310 Result Diagrams: 05/28/19 09:38 05/26/19 07:33 Additional Labs: Accuchecks 05/30/19 05/29/19 05/29/19 05:57 20:35 11:11 POC Glucose 178 H 182 H 313 H Hospitalist ROS - Medication Medications: Active Medications Generic Name Dose Route Start Last Admin Trade Name Freq PRN Reason Stop Dose Admin Acetaminophen 650 mg 05/21/19 12:48 05/27/19 11:39 Tylenol PO 650 mg Q4H PRN Administration Headache/Fever/Mild Pain (1-3) Hydrocodone Bitart/Acetaminophen 1 tab 05/21/19 12:48 05/26/19 00:19 [place] 5/325 PO 1 tab Q4H PRN Administration Moderate Pain (4-6) Dextrose/Water 25 gm 05/21/19 12:55 05/22/19 11:31 Dextrose 50% SLOW IVP 25 gm PRN PRN Administration Hypoglycemia Diphenhydramine HCl 50 mg 05/29/19 17:53 05/29/19 17:58 Benadryl PO 50 mg Q6H PRN Administration Itching & Insomnia Enoxaparin Sodium 40 mg 05/25/19 09:00 05/29/19 08:15 Lovenox SC 40 mg 0900 RICHARD Administration Famotidine 20 mg 05/21/19 21:00 05/29/19 20:26 Pepcid PO 20 mg BID RICHARD Administration Glyburide 2.5 mg 05/23/19 17:00 05/29/19 17:36 Diabeta PO 2.5 mg 0730,1700 RICHARD Administration Insulin Glargine 5 units/ 0.05 mls @ 0 mls/hr 05/25/19 09:00 05/29/19 08:15 Miscellaneous Medication SC 0.05 mls QAM RICHARD Administration Cefepime HCl 2 gm/ Sodium 100 mls @ 200 mls/hr 05/26/19 14:00 05/30/19 01:08 Chloride IVPB 100 mls 0200,1400 RICHARD Administration Insulin Human Lispro 0 units 05/21/19 12:55 05/29/19 11:28 Humalog SC 5 unit .MILD SLIDING SCALE PRN Administration Mild Correctional Scale Insulin Human Lispro 0 units 05/21/19 12:55 05/28/19 20:36 Humalog SC 2 unit .BEDTIME SLIDING SC PRN Administration Bedtime Correctional Scale Lisinopril 20 mg 05/24/19 09:00 05/29/19 08:16 Zestril PO 20 mg DAILY RICHARD Administration Metoprolol Succinate 50 mg 05/23/19 09:00 05/29/19 08:15 Toprol Xl PO 50 mg DAILY RICHARD Administration Metoprolol Succinate 25 mg 05/22/19 21:00 05/29/19 20:26 Toprol Xl PO 25 mg QPM RICHARD Administration Metronidazole 500 mg 05/24/19 21:00 05/29/19 20:26 Flagyl PO 500 mg TID RICHARD Administration Sodium Chloride 10 ml 05/24/19 21:00 05/29/19 20:26 Flush - Normal Saline IVF 10 ml Q12HR RICHARD Administration - Exam General Appearance: awake alert Eye: PERRL, anicteric sclera ENT: normocephalic atraumatic, no oropharyngeal lesions, moist mucosa Neck: supple, symmetric, no JVD, no thyromegaly Heart: RRR, no murmur, no gallops, no rubs, normal peripheral pulses Respiratory: CTAB, no wheezes, no rales, no ronchi, normal chest expansion Gastrointestinal: soft, non-tender, non-distended, normal bowel sounds Extremities - other findings: left forefoot amputated, covered in dressing and with woundvac Neurological: cranial nerve grossly intact, normal sensation to touch, no weakness, no focal deficits Hosp A/P (1) PVD (peripheral vascular disease) Code(s): I73.9 - PERIPHERAL VASCULAR DISEASE, UNSPECIFIED Status: Acute (2) Sepsis Code(s): A41.9 - SEPSIS, UNSPECIFIED ORGANISM Status: Acute (3) Afib Code(s): I48.91 - UNSPECIFIED ATRIAL FIBRILLATION Status: Chronic Qualifiers: Atrial fibrillation type: paroxysmal Qualified Code(s): I48.0 - Paroxysmal atrial fibrillation (4) Amputated toe Code(s): Z89.429 - ACQUIRED ABSENCE OF OTHER TOE(S), UNSPECIFIED SIDE Status: Acute (5) Diabetic toe ulcer Code(s): E11.621 - TYPE 2 DIABETES MELLITUS WITH FOOT ULCER; L97.509 - NON- PRESSURE CHRONIC ULCER OTH PRT UNSP FOOT W UNSP SEVERITY Status: Acute Qualifiers: Diabetes mellitus type: type 2 Laterality: left - Plan continue antibiotics, social research assistant, DVT proph w/lovenox s/p left TMA Continue antibiotics, hyperbaric therapy.. plans for wound vac Wound cx growing Staphylococcus and Enterobacter Continue cefepime and [place] Continue Lisinopril and Metoprolol SW consulted for Home wound vac management and OP hyperbaric treatments Follow up with Dr. Zurita for oral abx alternate at the time of DC Surgery suggesting Oral Cephalosporins
[2019-05-30] MEDS: Insulin Glargine 5 UNITS in Pre-Filled Syringe 1 EACH SC SCH (09:29)
[2019-05-30] MEDS: Enoxaparin Sodium 40 MG/0.4 ML SYRINGE SC SCH (09:29)
[2019-05-30] MEDS: metroNIDAZOLE 500 MG TAB PO SCH ×2 (09:29→14:13)
[2019-05-30] MEDS: Famotidine 20 MG TAB PO SCH (09:29)
[2019-05-30] MEDS: Lisinopril 20 MG TAB PO SCH (09:29)
[2019-05-30] MEDS: glyBURIDE 5 MG TAB PO SCH ×2 (09:30→17:28)
[2019-05-30] MEDS: HumaLOG 300 UNITS/3 ML VIAL SC PRN (11:35)
[2019-05-30 11:57] VITALS: BP 157/83; TEMP 98.7
--- NOTE | 2019-05-30 12:54 | PRG ---
DATE OF SERVICE: 05/30/2019 SUBJECTIVE: Mr. Pizarro is postoperative day #5 from left foot open transmetatarsal amputation. He has been undergoing hyperbaric oxygen treatments since surgery. He had a treatment yesterday and is scheduled for one later today. He has a wound VAC in place and I was present for dressing change yesterday. He has no complaints at this time. He continues to receive cefepime and metronidazole for antibiotic coverage. PHYSICAL EXAMINATION: VITAL SIGNS: He is afebrile. Pulse is 90, blood pressure 157/83. Examination is unchanged. EXTREMITIES: He has dressing intact with wound VAC in place on the left foot. LABORATORY DATA: No laboratory studies were obtained today. ASSESSMENT: The patient is doing well following left foot transmetatarsal amputation. He is ready for discharge at anytime. I have asked the case management to assist with arranging outpatient wound VAC and outpatient hyperbaric oxygen treatment. He can certainly be discharged on oral antibiotics. Job ID: [id number]
--- NOTE | 2019-05-31 22:16 | PQF ---
GEORGIANA MALDONADO MICHAEL W MD [id number] [id number] CLINICAL DOCUMENTATION CLARIFICATION FORM: POST DISCHARGE Addendum to original discharge summary date: ____ Late entry note date: __ DATE: 05/31/19 ATTN: Wm Multani Please exercise your independent, professional judgment in responding to the clarification form. Clinical indicators are provided on the bottom of this form for your review In your clinical opinion based on clinical findings below, can you please specify type of Gangrene if: Please check appropriate box(s): [ ] Gas Gangrene [ ] Dry Gangrene [ x] Wet Gangrene [ ] Other diagnosis [ ] Unable to determine In addition, please specify: Present on Admission (POA): [ ] Yes [ ] No [ ] Unable to determine For continuity of documentation, please document condition throughout progress notes and discharge summary. Thank You. CLINICAL INDICATORS - SIGNS / SYMPTOMS / LABS H&P p1 05/21 Dr Mckeon In ER, the patient noted to have a 2nd, 3rd and 4th toes blue discoloration with mild left foot swelling and redness H&P p1 05/21 Dr Mckeon the patient being admitted for cellulitis, gangrenous left 3 toes Microbiology wound culture 05/21 Enterobacter cloacae, Staphylococcus Lugdunensis RISK FACTORS H&P p1 05/21 Diabetes mellitus, on oral hypoglycemic agents Consult p2 05/22 Severe foot infection and impending gangrene of the toes Operative report p1 05/25 Distal left foot gangrene, left foot infection, severe PAD, diabetic neuropathy TREATMENTS: H&P p2 05/21 Continue monitoring blood sugar H&P p2 05/21 Continue sliding scale insulin SEP 26 IV Vancomycin SEP 26 IV Cefepime SEP 26- Insulin 5 units Orthopedic Surgery consult 05/22 Neil Olmedo Operative report p1 05/25 Left foot open transmetatarsal amputation (This form is maintained as a part of the permanent medical record) 2015 [employer]. All Rights Reserved [email or web address] [not provided] MTDD
== END 2019-05-30 19:45 | disposition home or self-care (01) | DRG 854 ==
LOC: ERS 09:32 → 2NO 11:12
PROVIDERS: ADMIT Internal Medicine; ATTEND Internal Medicine
PROC: B41DZZZ Fluoroscopy of Aorta and Bilateral Lower Extremity Arteries (ICD-10-PCS; 2019-05-23)
PROC: 0Y6N0Z9 Detachment at Left Foot, Partial 1st Ray, Open Approach (ICD-10-PCS; principal; 2019-05-25)
PROC: 0Y6N0ZB Detachment at Left Foot, Partial 2nd Ray, Open Approach (ICD-10-PCS; 2019-05-25)
PROC: 0Y6N0ZC Detachment at Left Foot, Partial 3rd Ray, Open Approach (ICD-10-PCS; 2019-05-25)
PROC: 0Y6N0ZD Detachment at Left Foot, Partial 4th Ray, Open Approach (ICD-10-PCS; 2019-05-25)
PROC: 0Y6N0ZF Detachment at Left Foot, Partial 5th Ray, Open Approach (ICD-10-PCS; 2019-05-25)
DX: A41.9 Sepsis, unspecified organism (principal); E11.52 Type 2 diabetes mellitus with diabetic peripheral angiopathy with gangrene; E87.1 Hypo-osmolality and hyponatremia; I96 Gangrene, not elsewhere classified; I48.0 Paroxysmal atrial fibrillation; I10 Essential (primary) hypertension; E78.5 Hyperlipidemia, unspecified; L03.032 Cellulitis of left toe; K21.9 Gastro-esophageal reflux disease without esophagitis; E11.40 Type 2 diabetes mellitus with diabetic neuropathy, unspecified; B95.2 Enterococcus as the cause of diseases classified elsewhere; D64.9 Anemia, unspecified; B95.7 Other staphylococcus as the cause of diseases classified elsewhere; Z79.899 Other long term (current) drug therapy; Z79.84 Long term (current) use of oral hypoglycemic drugs; Z88.1 Allergy status to other antibiotic agents; Z28.21 Immunization not carried out because of patient refusal; Z89.411 Acquired absence of right great toe
CPT/HCPCS: 36415; 36416; 71045; 75630; 75716; 76942; 80048; 80053; 80202; 81003; 81015; 83036; 83605; 85014; 85018; 85025; 85049; 87040; 87070; 87077; 87086; 87186; 87205; 88307; 93005; 93923; 96365; 96367; C1769; C1887; G0277; J0692; J1160; J1644; J1650; J1815; J1885; J2001; J2405; J2704; J2795; J3010; J3370; J3490; J7050; Q0163; Q9967

== ENCOUNTER 2019-05-31 15:38 | Outpatient (CLI) | payer MEDICARE | END 2019-05-31 15:39 | disposition home or self-care (01) | LOC: WCC 15:38 | PROVIDERS: ATTEND Family Medicine | DX: A41.9 Sepsis, unspecified organism (principal); L08.9 Local infection of the skin and subcutaneous tissue, unspecified | CPT/HCPCS: G0277 ×2 ==

== ENCOUNTER 2019-06-01 14:37 | Outpatient (CLI) | payer MEDICARE | END 2019-06-01 14:38 | disposition home or self-care (01) | LOC: WCC 14:37 | PROVIDERS: ATTEND Family Medicine | DX: I70.25 Atherosclerosis of native arteries of other extremities with ulceration (principal) | CPT/HCPCS: G0277 ==

== ENCOUNTER 2019-06-05 14:54 | Outpatient (CLI) | payer MEDICARE | END 2019-06-05 14:55 | disposition home or self-care (01) | LOC: WCC 14:54 | PROVIDERS: ATTEND Family Medicine | DX: I70.25 Atherosclerosis of native arteries of other extremities with ulceration (principal) | CPT/HCPCS: G0277 ==

== ENCOUNTER 2019-06-06 14:55 | Outpatient (CLI) | payer MEDICARE ==
[~2019-06-06 14:55] MED LIST: Sodium Chloride 0.9% 15 ML NEB ONE
== END 2019-06-06 14:56 | disposition home or self-care (01) ==
LOC: WCC 14:55
PROVIDERS: ATTEND Family Medicine
DX: I70.25 Atherosclerosis of native arteries of other extremities with ulceration (principal)
CPT/HCPCS: A4218; G0277

== ENCOUNTER 2019-06-07 16:06 | Outpatient (CLI) | payer MEDICARE | END 2019-06-07 16:07 | disposition home or self-care (01) | LOC: WCC 16:06 | PROVIDERS: ATTEND Family Medicine | DX: I70.25 Atherosclerosis of native arteries of other extremities with ulceration (principal) | CPT/HCPCS: G0277 ==

== ENCOUNTER 2019-06-08 16:00 | Outpatient (CLI) | payer MEDICARE ==
[2019-06-08] MEDS ORDERED: Sodium Chloride 0.9% 15 ML NEB ONE (17:00)
== END 2019-06-08 16:01 | disposition home or self-care (01) ==
LOC: WCC 16:00
PROVIDERS: ATTEND Family Medicine
DX: I70.25 Atherosclerosis of native arteries of other extremities with ulceration (principal)
CPT/HCPCS: A4218; G0277

== ENCOUNTER 2019-06-12 14:41 | Outpatient (CLI) | payer MEDICARE | END 2019-06-12 14:42 | disposition home or self-care (01) | LOC: WCC 14:41 | PROVIDERS: ATTEND Family Medicine | DX: I70.25 Atherosclerosis of native arteries of other extremities with ulceration (principal) | CPT/HCPCS: 97605; A4218 ==

== ENCOUNTER 2019-06-13 11:40 | Outpatient (CLI) | payer MEDICARE ==
[2019-06-13] MEDS ORDERED: Sodium Chloride 0.9% 15 ML NEB ONE (14:27)
== END 2019-06-13 11:41 | disposition home or self-care (01) ==
LOC: WCC 11:40
PROVIDERS: ATTEND Family Medicine
DX: I70.25 Atherosclerosis of native arteries of other extremities with ulceration (principal)
CPT/HCPCS: 97605; A4218

== ENCOUNTER 2019-06-14 14:11 | Outpatient (CLI) | payer MEDICARE ==
[2019-06-14] MEDS ORDERED: Sodium Chloride 0.9% 15 ML NEB ONE (15:40)
== END 2019-06-14 14:12 | disposition home or self-care (01) ==
LOC: WCC 14:11
PROVIDERS: ATTEND Family Medicine
DX: I70.25 Atherosclerosis of native arteries of other extremities with ulceration (principal)
CPT/HCPCS: 36416; 97605; A4218

== ENCOUNTER 2019-06-19 12:11 | Outpatient (CLI) | payer MEDICARE ==
--- NOTE | 2019-06-19 15:46 | PRG ---
DATE OF SERVICE: 06/19/2019 SUBJECTIVE: Mr. Kennedy Pizarro is a 69-year-old gentleman, who presents to the Wound Center for evaluation of a wound of the left foot subsequent to transmetatarsal amputation. The patient's medical history is significant for diabetes mellitus. The patient underwent transmetatarsal amputation of the left foot by Dr. Wm Ferguson. The patient was admitted to [facility] on 05/21/2019 with gangrenous left 2nd, 3rd, and 4th toes. Currently, the patient is receiving negative pressure therapy for the wound of his left foot. The patient is also receiving hyperbaric oxygen therapy for treatment of the wound of his left foot. PHYSICAL EXAMINATION: VITAL SIGNS: Temperature 98.2, pulse 92, respirations 16, and blood pressure 165/82. Accu-Chek 180. EXTREMITIES: The wound of the left foot measures approximately 4.7 x 7.5 cm. Granulation tissue is present within the wound margins. No purulent drainage is associated with the wound. A dorsalis pedis pulse or posterior tibial pulse is not palpable on the left. No significant edema of the left foot is appreciated on today's exam. ASSESSMENT AND PLAN: 1. Left foot wound subsequent to transmetatarsal amputation. Negative pressure therapy will be continued with dressing changes of the wound VAC here in the Wound Center. Hyperbaric oxygen therapy will also be continued. 2. Hypertension. 3. Diabetes mellitus. The patient's Accu-Chek in clinic today is 180. The patient has been told that for optimal wound healing, his blood glucoses should remain below 150. 4. Atrial fibrillation. 5. Peripheral vascular disease. Job ID: [id number]
[2019-06-19] MEDS ORDERED: Sodium Chloride 0.9% 15 ML NEB ONE (16:51)
== END 2019-06-19 12:12 | disposition home or self-care (01) ==
LOC: WCC 12:11
PROVIDERS: ATTEND Family Medicine
DX: T81.89XD Other complications of procedures, not elsewhere classified, subsequent encounter (principal); I10 Essential (primary) hypertension; E11.51 Type 2 diabetes mellitus with diabetic peripheral angiopathy without gangrene; I48.91 Unspecified atrial fibrillation; Z89.432 Acquired absence of left foot
CPT/HCPCS: A4218

== ENCOUNTER 2019-06-20 10:15 | Outpatient (CLI) | payer MEDICARE | END 2019-06-20 10:16 | disposition home or self-care (01) | LOC: WCC 10:15 | PROVIDERS: ATTEND Family Medicine | DX: I70.25 Atherosclerosis of native arteries of other extremities with ulceration (principal) | CPT/HCPCS: G0277 ==

== ENCOUNTER 2019-06-21 11:00 | Outpatient (CLI) | payer MEDICARE | END 2019-06-21 11:01 | disposition home or self-care (01) | LOC: WCC 11:00 | PROVIDERS: ATTEND Family Medicine | DX: I70.25 Atherosclerosis of native arteries of other extremities with ulceration (principal) | CPT/HCPCS: G0277 ==

== ENCOUNTER 2019-06-22 11:06 | Outpatient (CLI) | payer MEDICARE | END 2019-06-22 11:07 | disposition home or self-care (01) | LOC: WCC 11:06 | PROVIDERS: ATTEND Family Medicine | DX: I70.25 Atherosclerosis of native arteries of other extremities with ulceration (principal); L98.499 Non-pressure chronic ulcer of skin of other sites with unspecified severity ==

== ENCOUNTER 2019-06-26 14:06 | Outpatient (CLI) | payer MEDICARE | END 2019-06-26 14:07 | disposition home or self-care (01) | LOC: WCC 14:06 | PROVIDERS: ATTEND Family Medicine | DX: I70.25 Atherosclerosis of native arteries of other extremities with ulceration (principal) ==

== ENCOUNTER 2019-06-28 15:49 | Outpatient (CLI) | payer MEDICARE | END 2019-06-28 15:50 | disposition home or self-care (01) | LOC: WCC 15:49 | PROVIDERS: ATTEND Family Medicine | DX: I70.25 Atherosclerosis of native arteries of other extremities with ulceration (principal) | CPT/HCPCS: G0277 ==

== ENCOUNTER 2019-06-29 10:27 | Outpatient (CLI) | payer MEDICARE ==
[2019-06-29] MEDS ORDERED: Sodium Chloride 0.9% 15 ML NEB ONE (15:20)
== END 2019-06-29 10:28 | disposition home or self-care (01) ==
LOC: WCC 10:27
PROVIDERS: ATTEND Family Medicine
DX: I70.25 Atherosclerosis of native arteries of other extremities with ulceration (principal)
CPT/HCPCS: A4218

== ENCOUNTER 2019-07-03 10:00 | Outpatient (CLI) | payer MEDICARE ==
--- NOTE | 2019-07-03 12:21 | PRG ---
DATE OF SERVICE: 07/03/2019 SUBJECTIVE: Mr. Kennedy Pizarro is a very pleasant 69-year-old gentleman, who presents to the wound center for evaluation of a wound of the left foot subsequent to transmetatarsal amputation. The patient's medical history significant for diabetes mellitus. The patient underwent transmetatarsal amputation of the left foot by Dr. Wm Ferguson. The patient was admitted to [facility] on 05/21/2019, with a gangrenous left second, third, and fourth toes. Presently, the patient is receiving negative pressure therapy for the wound of his left foot. The patient is also receiving hyperbaric oxygen therapy for treatment of the wound of his left foot. OBJECTIVE: VITAL SIGNS: Temperature 98.2, pulse 94, respirations 17, blood pressure 136/63. Accu-Chek 147. EXTREMITIES: The wound of the left foot measures approximately 3.3 x 6.9 cm. The dimensions of the wound at the time of the patient's visit on 06/19/2019, were approximately 4.7 x 7.5 cm. Granulation tissue is present within the wound margins. No purulent drainage is associated with the wound. A dorsalis pedis pulse is not palpable on the left. No significant edema of the left foot is appreciated on exam today. ASSESSMENT AND PLAN: 1. Left foot wound subsequent to transmetatarsal amputation. Negative pressure therapy will be continued with dressing changes of the wound VAC in the wound center or with the assistance of Home Health. Hyperbaric oxygen therapy will also be continued. 2. Hypertension. 3. Diabetes mellitus. The patient's Accu-Chek in clinic today is 147. The patient has been reminded that for optimal wound healing. His blood glucoses should remain below 150. 4. Atrial fibrillation. 5. Peripheral vascular disease. Job ID: [id number]
[2019-07-03] MEDS ORDERED: Sodium Chloride 0.9% 15 ML NEB ONE (16:30)
== END 2019-07-03 10:01 | disposition home or self-care (01) ==
LOC: WCC 10:00
PROVIDERS: ATTEND Family Medicine
DX: S91.302D Unspecified open wound, left foot, subsequent encounter (principal); I10 Essential (primary) hypertension; E11.9 Type 2 diabetes mellitus without complications; I73.9 Peripheral vascular disease, unspecified; I48.91 Unspecified atrial fibrillation
CPT/HCPCS: A4218; G0277

== ENCOUNTER 2019-07-04 11:01 | Outpatient (CLI) | payer MEDICARE | END 2019-07-04 11:02 | disposition home or self-care (01) | LOC: WCC 11:01 | PROVIDERS: ATTEND Family Medicine | DX: I70.25 Atherosclerosis of native arteries of other extremities with ulceration (principal) | CPT/HCPCS: G0277 ==

== ENCOUNTER 2019-07-05 12:01 | Outpatient (CLI) | payer MEDICARE ==
[2019-07-05] MEDS ORDERED: Sodium Chloride 0.9% 15 ML NEB ONE (13:04)
== END 2019-07-05 12:02 | disposition home or self-care (01) ==
LOC: WCC 12:01
PROVIDERS: ATTEND Family Medicine
DX: I70.25 Atherosclerosis of native arteries of other extremities with ulceration (principal)
CPT/HCPCS: A4218

== ENCOUNTER 2019-07-06 10:50 | Outpatient (CLI) | payer MEDICARE | END 2019-07-06 10:51 | disposition home or self-care (01) | LOC: WCC 10:50 | PROVIDERS: ATTEND Family Medicine | DX: I70.25 Atherosclerosis of native arteries of other extremities with ulceration (principal) ==

== ENCOUNTER 2019-07-07 13:27 | Outpatient (CLI) | payer MEDICARE | END 2019-07-07 13:28 | disposition home or self-care (01) | LOC: ULT 13:27 | PROVIDERS: ATTEND Family Medicine | DX: R06.02 Shortness of breath (principal); I08.3 Combined rheumatic disorders of mitral, aortic and tricuspid valves | CPT/HCPCS: 93306 ==